=== PATIENT | male | born 1960 | race Caucasian/White ===

== ENCOUNTER 2016-05-18 14:39 | Inpatient (IN) | payer OTHER ==
[~2016-05-18] VITALS: Ht 180.3 cm; Wt 117.9 kg
[~2016-05-18 14:39] MED LIST: AMOXICILLIN500 M1 PO; AMOXICILLIN875 M1 PO; BACTRIM DS 8001 TAB PO; BACTRIM DS TAB1 EACH PO
--- NOTE | 2016-05-18 14:52 | NUR ---
PT TO ED C/O RIGHT FOOT CELLULITIS. PT WAS IN ED ON WEDNESDAY AND SENT HOME WITH PO ABX. PT SAW HIS PCP ON WEDNESDAY AND PREDNISONE AND AN ABX OINTMENT WAS ADDED. PT STATES IT IS NOT GETTING BETTER.
--- NOTE | 2016-05-18 15:12 | NUR ---
PT AMBULATORY TO [facility] AWAITING PROVIDER EVAL.
--- NOTE | 2016-05-18 15:12 | NUR ---
PT TO [facility] RM 11
--- NOTE | 2016-05-18 15:26 | NUR ---
ANTONIO CARRINGTON EVALUATING AT PRESENT
--- NOTE | 2016-05-18 15:31 | ED ANKLE/FOOT INJURY COMPLAINT ---
History of Present Illness General Chief Complaint: Foot or Ankle Injury Stated Complaint: R FOOT NOT GETTING BETTER Source: patient Exam Limitations: no limitations Vital Signs & Intake/Output Vital Signs & Intake/Output Vital Signs Date Time Temp Pulse Resp B/P Pulse O2 O2 Flow FiO2 Ox Delivery Rate 05/18 1451 97.1 87 20 130/78 97 Room Air Allergies Coded Allergies: NO KNOWN ALLERGIES (08/14/11) Reconcile Medications Amoxicillin 875 MG TABLET 1 TAB PO BID CELLULITIS Atorvastatin Calcium 40 MG TABLET 1 TAB PO DAILY CHOLESTEROL (Reported) Celecoxib 200 MG CAPSULE 1 CAP PO DAILY PSORIATIC ARTHRITIS (Reported) Cholecalciferol (Vitamin D3) (Vitamin D) 2,000 UNIT TABLET 1 TAB PO DAILY SUPPLEMENT (Reported) Cyanocobalamin (Vitamin B-12) (Cyanocobalamin Injection) 1,000 MCG/ML VIAL 1 ML IM Q2W SUPPLEMENT (Reported) Diflorasone Diacetate 0.05 % OINT...G. 1 CATHY TOP AD PRN PSORIASIS (Reported) Diflorasone Diacetate 0.05 % CREAM..G. 1 CATHY TOP AD PRN PSORIASIS (Reported) Escitalopram Oxalate 10 MG TABLET 1 TAB PO DAILY ANXIETY/DEPRESSION (Reported ) Ezetimibe (Zetia) 10 MG TABLET 1 TAB PO DAILY CHOLESTEROL (Reported) Levothyroxine Sodium (Synthroid) 50 MCG TABLET 1 TAB PO DAILY THYROID ( Reported) Methylprednisolone 4 MG TAB.DS.PK STEROID TAPER (Reported) Mupirocin 2 % OINT...G. 1 CATHY TOP TID RIGHT FOOT (Reported) apply to affected area(s) Sildenafil Citrate (Viagra) 50 MG TABLET 1 TAB PO AD PRN ED (Reported) 1 hour before sexual activity Sulfamethoxazole/Trimethoprim (Bactrim Ds Tablet) 800 MG-160 MG TABLET 1 TAB PO BID CELLULITIS Triage Note: PT TO ED C/O RIGHT FOOT CELLULITIS. PT WAS IN ED ON WEDNESDAY AND SENT HOME WITH PO ABX. PT SAW HIS PCP ON WEDNESDAY AND PREDNISONE AND AN ABX OINTMENT WAS ADDED. PT STATES IT IS NOT GETTING BETTER. Triage Nurses Notes Reviewed? yes Occurred: last week Duration: day(s): (6) Timing: recent history Severity: moderate Severity Numbers: 8 Pain/Injury Location: Right: Foot. Method of Injury: unknown No Modifying Factors: none HPI: Patient is a 56-year-old male presenting to the emergency department chief complaining of worsening redness pain and swelling to the right foot site being on 2 antibiotics. Patient was seen and evaluated here 5-6 days ago and started on 2 antibiotics, saw his primary care physician the following day who added on prednisone. He reports the symptoms have been worsening. Denies any fevers chills nausea vomiting chest pain or shortness of breath. He's been elevating the foot as much as he can. Pain worse with ambulation. Pain is moderate achy throbbing. (MATT OLMSTEAD) Past History Travel History Traveled to [place] past 21 day No Medical History Any Pertinent Medical History? see below for history Neurological: NONE EENT: NONE Cardiovascular: HIGH CHOLESTEROL Respiratory: NONE Gastrointestinal: NONE Hepatic: NONE Renal: NONE Musculoskeletal: psoariatic arthritis Psychiatric: NONE Endocrine: HYPOTHYROID Blood Disorders: NONE Cancer(s): NONE Surgical History Surgical History: non-contributory Psychosocial History What is your primary language [place] Tobacco Use: Quit >30 days ago ETOH Use: denies use Illicit Drug Use: denies illicit drug use Family History Hx Contributory? No (MATT OLMSTEAD) Review of Systems Review of Systems Constitutional: Reports: no symptoms. Comments Review of systems: See HPI, All other systems negative. Constitutional, no chills fever or weight loss HEENT: No visual changes no sore throat no congestion Cardiovascular: No chest pain ,palpitation Skin, no jaundice Respiratory: No dyspnea cough sputum or hemoptysis GI: No nausea no vomiting : No dysuria No hematuria Muscle skeletal: no back pain, no neck pain, Neurologic: No numbness no confusion Psych: No stress anxiety Immunology: No splenectomy or history of AIDS (MATT OLMSTEAD) Physical Exam Physical Exam General Appearance: well developed/nourished, no apparent distress, alert, comfortable Leg/Knee/Thigh Left: normal range of motion, normal inspection Comments: Well-developed well-nourished person in no acute distress HEENT: Pupils equally round and reactive to light and accommodation. Nose is atraumatic. Neck: Normal inspection Back: Nontender Cardiovascular: Regular rate and rhythms no murmurs rubs or gallops, normal JVP Respiratory: Chest nontender. No respiratory distress.breath sounds clear to auscultation bilaterally Extremity: Moderate edema noted to the right foot on the dorsal aspect. Near full range of motion, somewhat limited secondary to pain. No pain to palpation over the right medial and lateral malleolus. Capillary refills intact in right lower extremity. Pedal pulses are 2+ bilaterally. Neuro: Alert oriented x3, motor sensory normal Skin: Moderate erythema noted of the dorsum of the foot, spans an area approximately 8-10 cm, tender to palpation. Nonfluctuant. Psych: Mood and affect is normal, memory and judgment is normal. (CHARISSA ALVAREZ,MATT) Progress Differential Diagnosis: cellulitis, septic arthritis, fracture, sprain, contusion, septic arthritis, osteomyelitis Plan of Care: Orders Procedure Date/time Status Heart Healthy Diet 05/19 B Active Admit to inpatient 05/18 1755 Active Patient Data 05/18 1731 Active WESTERGREN SED RATE 05/18 1530 Complete C-REACTIVE PROTEIN 05/18 1530 Complete COMPREHENSIVE METABOLIC PANEL 05/18 1530 Complete CBC WITHOUT DIFFERENTIAL 05/18 1530 Complete Laboratory Tests 05/18/16 1536: Anion Gap 11, Estimated GFR > 60, BUN/Creatinine Ratio 18.2, Glucose 134 H, Calcium 9.6, Total Bilirubin 0.5, AST 35, ALT 89 H, Alkaline Phosphatase 111, C -Reactive Prot, Quant 1.9 H, Total Protein 7.4, Albumin 4.2, Globulin 3.2, Albumin/Globulin Ratio 1.3, CBC w Diff NO MAN DIFF REQ, RBC 4.92, MCV 88.4, MCH 30.1, RDW 13.1, MPV 7.3 L, Gran % 83.4 H, Lymphocytes % 9.9 L, Monocytes % 6.6, Eosinophils % 0.1, Basophils % 0 L, Absolute Granulocytes 12.4 H, Absolute Lymphocytes 1.5, Absolute Monocytes 1.0 H, Absolute Eosinophils 0, Absolute Basophils 0, PUBS MCHC 34.0, ESR Westergren 32 H Diagnostic Imaging: Viewed by Me: Radiology Read. Discussed w/RAD: Radiology Read. Radiology Impression: ATIENT: BERNIE PAT III PRESENT AGE: 56 PATIENT ACCOUNT NO: [id number] : 60 LOCATION: [facility] ORDERING PHYSICIAN: MATT ALVAREZ SERVICE DATE: 05/18/16-1529 EXAM TYPE: RAD - XRY-FOOT COMPLETE, R EXAMINATION: XR FOOT, RIGHT CLINICAL INFORMATION: Worsening cellulitis. Evaluate for osteomyelitis. COMPARISON: None. TECHNIQUE: AP, lateral, and oblique views of the right foot FINDINGS: Moderate soft tissue swelling is seen dorsal to the metatarsal bones. The hindfoot and midfoot are normal in appearance. There is focal sclerosis and lucencies in the distal phalanx of the first digit and the distal phalanx of the second digit. These findings appear chronic but require correlation with the site of clinical concern. IMPRESSION: Moderate soft tissue swelling. No well-defined radiographic changes of osteomyelitis. Focal sclerosis in the distal phalanges of the first and second digits are nonspecific. Correlate with prior infection or trauma. Correlate with site of clinical concern. Additional follow-up imaging with MRI could be obtained if there is a high index of clinical concern. DICTATED BY: MAR ROBERSON MD DATE/TIME DICTATED:05/18/161606 CONSTRUCTION RIGGER:KULDEEP DATE/TIME TRANSCRIBED:05/18/161606 CONFIDENTIAL, DO NOT COPY WITHOUT APPROPRIATE AUTHORIZATION. <Electronically signed in Other Vendor System> SIGNED BY: MAR ROBERSON MD 05/18/16 1612 Comments: Patient given IV Cleocin on arrival for worsening cellulitis. Patient will be admitted for failed outpatient treatment. Spoke with and would like patient to be a full admission for failed outpatient treatment. Patient also received IV Toradol for pain. (MATT OLMSTEAD) Departure Departure Time of Disposition: 1643 Disposition: STILL A PATIENT Condition: Stable Clinical Impression Primary Impression: Cellulitis Qualifiers: Site of cellulitis: unspecified site Qualified Code: L03.90 - Cellulitis, unspecified Secondary Impressions: Failure of outpatient treatment Leukocytosis Qualifiers: Leukocytosis type: unspecified Qualified Code: D72.829 - Elevated white blood cell count, unspecified Referrals: BERNIE CHEEK MD (PCP/Family) Referred to [facility] as new patient No Departure Forms: Customer Survey General Discharge Information Admission Note Spoke With: BERNIE CHEEK MD Documentation of Exam: Documentation of any treatments & extenuating circumstances including Concerns Regarding Discharge (functional status, medication knowledge or non-compliance, living conditions, etc.) that warrant an admission rather than observation: Patient requiring IV antibiotics, failed outpatient treatment, may need podiatry consultation. unsafe to discharge home at this time secondary to likely have worsening symptoms that could lead to sepsis. (CHARISSA ALVAREZ,MATT) PA/MANDARIN CHINESE TEACHER Co-Sign Statement Statement: ED Attending supervision documentation- [] I saw and evaluated the patient. I have also reviewed all the pertinent lab results and diagnostic results. I agree with the findings and the plan of care as documented in the PA's/MANDARIN CHINESE TEACHER's documentation. [X] I have reviewed the ED Record and agree with the PA's/MANDARIN CHINESE TEACHER's documentation. [] Additions or exceptions (if any) to the PAs/MANDARIN CHINESE TEACHER's note and plan are summarized below: [] (KAYODE TAMEZ DO
[2016-05-18 16:06] LABS: ABSOLUTE BASOPHIL COUNT 0 /CUMM (0.0-0.2); ABSOLUTE EOSINOPHIL COUNT 0 /CUMM (0.0-0.7); ABSOLUTE GRANULOCYTE CT 12.4 /CUMM (1.4-6.5); ABSOLUTE LYMPH COUNT 1.5 /CUMM (1.2-3.4); BASOPHIL % 0 % (0.0-2.0); EOSINOPHIL % 0.1 % (0-5); MEAN CORPUSCULAR HGB 30.1 PG (27.0-31.0); MEAN PLATELET VOLUME 7.3 FL (7.4-10.4); PLATELET COUNT 278 /CUMM (130-400); RBC DISTRIBUTION WIDTH 13.1 % (11.5-14.5); RED BLOOD CELL CT 4.92 /CUMM (4.70-6.10); WHITE BLOOD CELL COUNT 14.8 /CUMM (4.8-10.8)
[2016-05-18 16:08] LABS: GRANULOCYTE % 83.4 % (42.2-75.2); HEMATOCRIT 43.5 % (42-52); MEAN CORPUSCULAR VOLUME 88.4 FL (80.0-94.0)
--- NOTE | 2016-05-18 16:08 | NUR ---
PT MEDICATED WITH TORADOL AND CLEOCIN PER ORDERS
--- NOTE | 2016-05-18 16:12 | RADIOLOGY REPORT ---
EXAMINATION: XR FOOT, RIGHT CLINICAL INFORMATION: Worsening cellulitis. Evaluate for osteomyelitis. COMPARISON: None. TECHNIQUE: AP, lateral, and oblique views of the right foot FINDINGS: Moderate soft tissue swelling is seen dorsal to the metatarsal bones. The hindfoot and midfoot are normal in appearance. There is focal sclerosis and lucencies in the distal phalanx of the first digit and the distal phalanx of the second digit. These findings appear chronic but require correlation with the site of clinical concern. IMPRESSION: Moderate soft tissue swelling. No well-defined radiographic changes of osteomyelitis. Focal sclerosis in the distal phalanges of the first and second digits are nonspecific. Correlate with prior infection or trauma. Correlate with site of clinical concern. Additional follow-up imaging with MRI could be obtained if there is a high index of clinical concern.
[2016-05-18] MEDS ORDERED: SYNTHROID50 MCG PO (16:14)
[2016-05-18] MEDS ORDERED: ATORVASTATIN CA40 M1 PO (16:15)
[2016-05-18] MEDS ORDERED: ESCITALOPRAM OX10 MG PO (16:15)
[2016-05-18] MEDS ORDERED: ZETIA10 M1 PO (16:15)
[2016-05-18] MEDS ORDERED: VIAGRA50 MG PO (16:16)
[2016-05-18] MEDS ORDERED: CYANOCOBAL1000 MCG/2 IM (16:17)
[2016-05-18] MEDS ORDERED: CELECOXIB200 M1 PO (16:17)
[2016-05-18] MEDS ORDERED: VITAMIN D2000 UNI1 PO (16:18)
[2016-05-18] MEDS ORDERED: MUPIROCIN22 GM TOP (16:19)
[2016-05-18] MEDS ORDERED: DIFLORASONE DIA TOP ×2 (16:19→16:20)
[2016-05-18] MEDS ORDERED: METHYLPREDNISOLO4 M2 PO (16:19)
--- NOTE | 2016-05-18 16:29 | NUR ---
ANTONIO CARRINGTON AT BEDSIDE
--- NOTE | 2016-05-18 18:03 | NUR ---
SPOKE WITH JASON IN [facility]INING SERVICES, HEART HEALTHY TRAY ORDERED AT THIS TIME.
--- NOTE | 2016-05-18 18:30 | NUR ---
MEAL TRAY PROVIDED
--- NOTE | 2016-05-18 18:45 | NUR ---
HOUSE STAFF EVALUATING PATIENT AT PRESENT
--- NOTE | 2016-05-18 19:07 | History & Physical ---
CASS CASTILLO MD 05/18/161905: General Information and HPI MD Statement: I have seen and personally examined BERNIE PAT III and documented this H&P. The patient is a 56 year old M who presented with a patient stated chief complaint of [right foot pain and redness]. Source of Information: patient Exam Limitations: no limitations History of Present Illness: A very pleasant 56-year-old male with PMH of psoriasis, MRSA cellulitis, presented with worsening right foot erythema and pain. On Wednesday, he noted a blister over the dorsum of his right foot. On , it appeared more red. He presented to the ED and was discharged on bactrim and amoxicillin, which he has been taking religiously. On Wednesday, he followed up with his PCP and was given mupirocin ointment and methylprednisolone. Today (wednesday), the area has turned purple and he was concerned and again presented to the ED. Of note, he does have extensive psoriasis affecting both lower extremities and he had an underlying psoriatic lesion where the presumed cellulitis is currently on. The pain is about 3/10 at rest, and 10/10 when he bears weight on the right foot. He also reports tenderness over the dorsum of the foot. On ROS, he denies fever, chills, chest pain, diarrhea. Allergies/Medications Allergies: Coded Allergies: NO KNOWN ALLERGIES (08/14/11) Home Med list Amoxicillin 875 MG TABLET 1 TAB PO BID CELLULITIS Atorvastatin Calcium 40 MG TABLET 1 TAB PO DAILY CHOLESTEROL (Reported) Celecoxib 200 MG CAPSULE 1 CAP PO DAILY PSORIATIC ARTHRITIS (Reported) Cholecalciferol (Vitamin D3) (Vitamin D) 2,000 UNIT TABLET 1 TAB PO DAILY SUPPLEMENT (Reported) Cyanocobalamin (Vitamin B-12) (Cyanocobalamin Injection) 1,000 MCG/ML VIAL 1 ML IM Q2W SUPPLEMENT (Reported) Diflorasone Diacetate 0.05 % OINT...G. 1 CATHY TOP AD PRN PSORIASIS (Reported) Diflorasone Diacetate 0.05 % CREAM..G. 1 CATHY TOP AD PRN PSORIASIS (Reported) Escitalopram Oxalate 10 MG TABLET 1 TAB PO DAILY ANXIETY/DEPRESSION (Reported ) Ezetimibe (Zetia) 10 MG TABLET 1 TAB PO DAILY CHOLESTEROL (Reported) Folic Acid (Unknown Strength) CAPSULE (Unknown Dose) PO DAILY SUPPLEMENT ( Reported) Levothyroxine Sodium (Synthroid) 50 MCG TABLET 1 TAB PO DAILY THYROID ( Reported) Methylprednisolone 4 MG TAB.DS.PK STEROID TAPER (Reported) Mupirocin 2 % OINT...G. 1 CATHY TOP TID RIGHT FOOT (Reported) apply to affected area(s) Sildenafil Citrate (Viagra) 50 MG TABLET 1 TAB PO AD PRN ED (Reported) 1 hour before sexual activity Sulfamethoxazole/Trimethoprim (Bactrim Ds Tablet) 800 MG-160 MG TABLET 1 TAB PO BID CELLULITIS Past History Travel History Traveled to [place] past 21 day No Medical History Neurological: NONE EENT: NONE Cardiovascular: HIGH CHOLESTEROL Respiratory: NONE Gastrointestinal: NONE Hepatic: NONE Renal: NONE Musculoskeletal: psoariatic arthritis Psychiatric: NONE Endocrine: HYPOTHYROID Blood Disorders: NONE Cancer(s): NONE Surgical History Surgical History: non-contributory Past Family/Social History Psychosocial History ETOH Use: denies use Illicit Drug Use: denies illicit drug use Review of Systems Review of Systems Constitutional: Denies: chills, fever. EENTM: Denies: visual changes. Cardiovascular: Denies: chest pain, palpitations. Respiratory: Denies: cough, short of breath. GI: Denies: abdominal pain, bloating, constipation, diarrhea. Exam & Diagnostic Data Last 24 Hrs of Vital Signs/I&O Vital Signs Date Time Temp Pulse Resp B/P Pulse O2 O2 Flow FiO2 Ox Delivery Rate 05/18 1935 95.8 82 18 125/73 95 Room Air 05/18 1451 97.1 87 20 130/78 97 Room Air Intake & Output 05/18 1600 05/18 0800 05/18 0000 Intake Total Output Total Balance Patient 120.202 kg Weight Physical Exam General Appearance Alert, Oriented X3, Cooperative, No Acute Distress Skin psoriatic lesions over both lower extremities, about 8 mm purple lesion with surrounding 3 cm diameter erythema over the dorsum of the right foot. area tneder to touch. area not marked because we cannot find a surgical marker. HEENT Atraumatic, PERRLA Cardiovascular Regular Rate, Normal S1, Normal S2, No Murmurs, Gallops, Rubs Lungs Clear to Auscultation, Normal Air Movement Abdomen Normal Bowel Sounds, Soft, No Tenderness Neurological Normal Speech Body Front and Back (Adult) 1) 8 mm purple lesion with surrounding 3cm diameter erythema Last 24 Hrs of Labs/Sidney: Laboratory Tests 05/18/16 1536: Anion Gap 11, Estimated GFR > 60, BUN/Creatinine Ratio 18.2, Glucose 134 H, Calcium 9.6, Total Bilirubin 0.5, AST 35, ALT 89 H, Alkaline Phosphatase 111, C -Reactive Prot, Quant 1.9 H, Total Protein 7.4, Albumin 4.2, Globulin 3.2, Albumin/Globulin Ratio 1.3, CBC w Diff NO MAN DIFF REQ, RBC 4.92, MCV 88.4, MCH 30.1, RDW 13.1, MPV 7.3 L, Gran % 83.4 H, Lymphocytes % 9.9 L, Monocytes % 6.6, Eosinophils % 0.1, Basophils % 0 L, Absolute Granulocytes 12.4 H, Absolute Lymphocytes 1.5, Absolute Monocytes 1.0 H, Absolute Eosinophils 0, Absolute Basophils 0, PUBS MCHC 34.0, ESR Westergren 32 H Diagnostic Data Other Results Foot xray: Moderate soft tissue swelling. No well-defined radiographic changes of osteomyelitis. Focal sclerosis in the distal phalanges of the first and second digits are nonspecific. Correlate with prior infection or trauma. Correlate with site of clinical concern. Additional follow-up imaging with MRI could be obtained if there is a high index of clinical concern. Assessment/Plan Assessment: 56-year-old male with PMH of psoriasis, MRSA cellulitis, presented with worsening right foot erythema and pain, not improving on OP treatment with amoxicillin, bactrim, mupirocin, and methylprednisolone. # Cellulitis, presumably MRSA - WBC 14.8 - ESR 32 - Right foot xray negative for osteomyelitis - Given 1 time clindamycin in ED * Pain control with morphine * IV vancomycin * Consider MRI to r/o osteomyelitis # Psoriasis * Continue celecoxib and ointments # HLD * Continue statin # Hypothyroidism * Continue home dose levothyroxine Diet: regular DVT ppx: mech and pharm FULL CODE As Ranked By This Provider Problem List: 1. Cellulitis Qualifiers Site of cellulitis: unspecified site Qualified Code: L03.90 - Cellulitis, unspecified 2. Failure of outpatient treatment 3. Leukocytosis Qualifiers Leukocytosis type: unspecified Qualified Code: D72.829 - Elevated white blood cell count, unspecified Core Measures/Miscellaneous Acute Coronary Syndrome ACS Diagnosis: No Cerebrovascular Accident CVA/TIA Diagnosis: No Congestive Heart Failure CHF Diagnosis: No Venous Thromboembolism VTE Risk Factors: Acute medical illness, Age > 40 VTE Prophylaxis Ordered Inpt: Mech & Pharm No Mech VTE prophylaxis d/t: No contraindications No VTE Pharm Prophylaxis d/t: No contraindications VTE Diagnosis: No VTE Type: NONE VTE Confirmed by (Test): NONE Severe Sepsis Severe Sepsis Present: No Septic Shock Septic Shock Present: No Miscellaneous Documentation Attending Case Discussed With: BERNIE CHEEK MD Primary Care Physician: BERNIE CHEEK MD Patient sees these Specialists N/A Level of Patient Care: General Medicine MONA WANG 05/18/167: Resident Review Statement Resident Statement: examined this patient, discussed with planner internship, agreed with planner internship, discussed with family, reviewed EMR data (avail), amended to note Other Findings: 56-year-old gentleman with past medical history of psoriasis, MRSA cellulitis, hyperlipidemia, hypothyroidism, depression came to the hospital with failed outpatient therapy for cellulitis. Patient reported he was here and and he was discharged with amoxicillin and Bactrim for his right foot cellulitis however the cellulitis got worse and top of his foot became purple and more painful. He denies any fevers or chills or nausea or vomiting or chest pain, trauma. However he does have multiple psoriatic lesions. Vital signs on admission were stable, no fever General appearance alert and oriented 3, not in distress HEENT Atraumatic, PERRLA, EOMI Neck Supple, No JVD, No thryomegaly Cardiovascular Regular Rate, Normal S1, Normal S2 Lungs Clear to Auscultation, Normal Air Movement Extremities multiple psoriatic lesions in hands and Legs,purple 5x5 cm tender in dorsum of the foot, no fluctutions FOOT X RAY IMPRESSION: Moderate soft tissue swelling. No well-defined radiographic changes of osteomyelitis. Focal sclerosis in the distal phalanges of the first and second digits are nonspecific. Correlate with prior infection or trauma. Correlate with site of clinical concern. Assessment -Possible MRSA cellulitis -Psoriasis -Hypothyroidism plan -Patient got IV clindamycin once, will put the patient on IV vancomycin -Check for fevers, blood cultures -Continue celexbocib , IV morphine for pain -Continue SSRI, levothyroxine, Zetia -Continue steroid cream for psoriasis -DVT prophylaxis Alps and heparin sub Q, heart healthy diet, full code
[2016-05-18] MEDS ORDERED: FOLIC ACID0.8 M1 PO (20:43)
--- NOTE | 2016-05-18 21:33 | NUR ---
PT'S ASSIGNMENT 206
--- NOTE | 2016-05-18 21:42 | NUR ---
REPORT TO TRISHA HERFLEXOGRAPHIC PRINTING MACHINIST CALLED.
--- NOTE | 2016-05-18 23:35 | NUR ---
ADMISSION NOTE: PT ARRIVED TO FLOOR VIA WC, A/OX3, ROOM AIR, IV SITE INTACT, PAIN /10 TO RT FOOT, REDNESS AND +1 EDEMA NOTED TO RT FOOT, PSORIASIS NOTED TO BLE, WELCOME FOLDER GIVEN, ORIENTED TO ROOM, RESTING IN LOW, LOCKED BED.
[2016-05-18 23:40] VITALS: BP 114/59
--- NOTE | 2016-05-19 07:18 | Admission Certification ---
Admission Certification Certification Statement - As attending physician, I certify that at the time of - admission, based on clinical presentation, severity of - symptoms, need for further diagnostic testing and - therapeutic interventions, and risk of adverse outcomes - without in-hospital treatment, in my clinical assessment, - this patient requires an acute hospital stay for a minimum - of two nights or longer. I have also considered psychsocial - factors such as support system, advanced age, financial - issues, cognitive issues, and failed out-patient treatments, - past re-admission history, safety of patient, and lack of - compliance as applicable. Specific rationale supporting this admission is: Patient admitted to the hospital for IV antibiotics for her recurrent cellulitis not responding to oral antibiotics for about a week.
--- NOTE | 2016-05-19 07:24 | PN- Att Addend ---
Attending Addendum Attending Brief Note Intake & Output 05/19 0800 05/19 0000 05/18 1600 Intake Total 100 Output Total Balance 100 Intake, IV 100 Patient 260 lb 265 lb Weight Current Medications Sig/Fariba Start time Last Medication Dose Route Stop Time Status Admin Acetaminophen 650 MG Q4P PRN 05/18 2215 AC PO Atorvastatin Calcium 40 MG DAILY 05/19 1000 AC PO Celecoxib 200 MG DAILY 05/19 1000 AC PO Cholecalciferol 1,000 IU DAILY 05/19 1000 AC PO Clindamycin 600 MG ONCE ONE 05/18 1530 DC 05/18 Dextrose/Water 50 ML IV 05/18 1559 1608 Enoxaparin Sodium 40 MG DAILY 05/19 1000 CAN SC Escitalopram Oxalate 10 MG DAILY 05/19 1000 AC PO Ezetimibe 10 MG DAILY 05/19 1000 AC PO Fluocinonide 1 CATHY BID 05/18 220 AC 05/18 EXT 2256 Heparin Sodium 5,000 UNIT Q8 05/19 0600 AC 05/19 (Porcine) SC 0707 Ketorolac 0 .STK-MED ONE 05/18 1602 DC Tromethamine .ROUTE Ketorolac 30 MG ONCE ONE 05/18 1545 DC 05/18 Tromethamine IV 05/18 1546 1608 Levothyroxine Sodium 0.05 MG DAILY AC 05/19 0700 AC 05/19 PO 0707 Morphine Sulfate 2 MG Q4P PRN 05/18 2215 AC 05/19 IV 0707 Vancomycin HCl 1,500 MG Q12 05/19 1000 AC Sodium Chloride 250 ML IV Vancomycin HCl 1,000 MG ONCE ONE 05/18 2215 DC 05/19 Sodium Chloride 250 ML IV 05/18 2314 0047 Laboratory Tests 05/18 1536 Chemistry Sodium (137 - 145 mmol/L) 137 Potassium (3.5 - 5.1 mmol/L) 4.2 Chloride (98 - 107 mmol/L) 100 Carbon Dioxide (22 - 30 mmol/L) 26 Anion Gap (5 - 16) 11 BUN (9 - 20 mg/dL) 20 Creatinine (0.7 - 1.2 mg/dL) 1.1 Estimated GFR (>60 ml/min) > 60 BUN/Creatinine Ratio (7 - 25 %) 18.2 Glucose (65 - 99 mg/dL) 134 H Calcium (8.4 - 10.2 mg/dL) 9.6 Total Bilirubin (0.2 - 1.3 mg/dL) 0.5 AST (17 - 59 U/L) 35 ALT (21 - 72 U/L) 89 H Alkaline Phosphatase (< 127 U/L) 111 C-Reactive Prot, Quant (<1.0 mg/dL) 1.9 H Total Protein (6.3 - 8.2 g/dL) 7.4 Albumin (3.5 - 5.0 g/dL) 4.2 Globulin (1.9 - 4.2 gm/dL) 3.2 Albumin/Globulin Ratio (1.1 - 2.2 %) 1.3 Hematology CBC w Diff NO MAN DIFF REQ WBC (4.8 - 10.8 /CUMM) 14.8 H RBC (4.70 - 6.10 /CUMM) 4.92 Hgb (14.0 - 18.0 G/DL) 14.8 Hct (42 - 52 %) 43.5 MCV (80.0 - 94.0 FL) 88.4 MCH (27.0 - 31.0 PG) 30.1 RDW (11.5 - 14.5 %) 13.1 Plt Count (130 - 400 /CUMM) 278 MPV (7.4 - 10.4 FL) 7.3 L Gran % (42.2 - 75.2 %) 83.4 H Lymphocytes % (20.5 - 51.1 %) 9.9 L Monocytes % (1.7 - 9.3 %) 6.6 Eosinophils % (0 - 5 %) 0.1 Basophils % (0.0 - 2.0 %) 0 L Absolute Granulocytes (1.4 - 6.5 /CUMM) 12.4 H Absolute Lymphocytes (1.2 - 3.4 /CUMM) 1.5 Absolute Monocytes (0.10 - 0.60 /CUMM) 1.0 H Absolute Eosinophils (0.0 - 0.7 /CUMM) 0 Absolute Basophils (0.0 - 0.2 /CUMM) 0 PUBS MCHC (33.0 - 37.0 G/DL) 34.0 ESR Westergren (0 - 10 MM) 32 H Microbiology Date/Time Procedure - Status Source Growth 05/19 Blood Culture - RECD BLOOD 05/19 Blood Culture - RECD BLOOD Vital Signs Date Time Temp Pulse Resp B/P Pulse O2 O2 Flow FiO2 Ox Delivery Rate 05/18 2340 97.3 68 20 114/59 96 Room Air 05/18 2150 96.0 70 16 112/68 98 Room Air 05/18 1935 95.8 82 18 125/73 95 Room Air 05/18 1451 97.1 87 20 130/78 97 Room Air Intake & Output 05/19 0800 05/19 0000 05/18 1600 Intake Total 100 Output Total Balance 100 Intake, IV 100 Patient 260 lb 265 lb Weight Attending admitting note. This is a gentleman with a history of for small cell cellulitis in the past present to the emergency room with worsening of cellulitis of his the right foot. So I'm in the office was treated with the doxycycline not responding to oral antibiotics. Pain and swelling is "worse has difficulty ambulating. On examination of redness and swelling on the dorsum of the right foot with the in duration extending all over the dorsum of the foot actually proximally. As well Assessment Cellulitis crushable MRSA sepsis Obtain blood cultures *The patient IV vancomycin. 4. An infectious disease consult
--- NOTE | 2016-05-19 07:29 | PN- Housestaff ---
Subjective Follow-up For: MRSA cellulities psoriasis Subjective: I have seen and examined the patient. he still has pain in his right foot.no major change in the appreance of the cellulties Review of Systems Constitutional: Reports: see HPI. Objective Last 24 Hrs of Vital Signs/I&O Vital Signs Date Time Temp Pulse Resp B/P Pulse O2 O2 Flow FiO2 Ox Delivery Rate 05/19 0914 98.2 90 20 142/90 94 Room Air 05/18 2340 97.3 68 20 114/59 96 Room Air 05/18 2150 96.0 70 16 112/68 98 Room Air 05/18 1935 95.8 82 18 125/73 95 Room Air 05/18 1451 97.1 87 20 130/78 97 Room Air Intake & Output 05/19 1600 05/19 0800 05/19 0000 Intake Total 250 100 Output Total Balance 250 100 Intake, IV 250 100 Patient 260 lb Weight Physical Exam General Appearance: Alert, Oriented X3, Cooperative, No Acute Distress Current Medications: Current Medications Sig/Fariba Start time Last Medication Dose Route Stop Time Status Admin Acetaminophen 650 MG Q8 05/19 1400 AC PO 05/21 0000 Acetaminophen 650 MG Q4P PRN 05/18 2215 DC PO Atorvastatin Calcium 40 MG DAILY 05/19 1000 AC 05/19 PO 1006 Celecoxib 200 MG DAILY 05/19 1000 CAN PO Cholecalciferol 1,000 IU DAILY 05/19 1000 AC 05/19 PO 1006 Clindamycin 600 MG ONCE ONE 05/18 1530 DC 05/18 Dextrose/Water 50 ML IV 05/18 1559 1608 Enoxaparin Sodium 40 MG DAILY 05/19 1000 CAN SC Escitalopram Oxalate 10 MG DAILY 05/19 1000 AC 05/19 PO 1006 Ezetimibe 10 MG DAILY 05/19 1000 AC 05/19 PO 1006 Fluocinonide 1 CATHY BID 05/18 2203 AC 05/19 EXT 1007 Heparin Sodium 5,000 UNIT Q8 05/19 0600 AC 05/19 (Porcine) SC 0707 Ibuprofen 400 MG Q6P PRN 05/19 0830 AC 05/19 PO 1013 Ketorolac 0 .STK-MED ONE 05/18 1602 DC Tromethamine .ROUTE Ketorolac 30 MG ONCE ONE 05/18 1545 DC 05/18 Tromethamine IV 05/18 1546 1608 Levothyroxine Sodium 0.05 MG DAILY AC 05/19 0700 AC 05/19 PO 0707 Morphine Sulfate 2 MG Q4P PRN 05/18 2215 AC 05/19 IV 0707 Vancomycin HCl 1,500 MG Q12 05/19 1000 AC 05/19 Sodium Chloride 250 ML IV 1007 Vancomycin HCl 1,000 MG ONCE ONE 05/18 221 DC 05/19 Sodium Chloride 250 ML IV 05/18 2314 0047 Assessment/Plan Assessment: 56-year-old gentleman with past medical history of psoriasis, MRSA cellulitis, hyperlipidemia, hypothyroidism, depression came to the hospital with failed outpatient therapy for cellulitis. Patient reported he was here and and he was discharged with amoxicillin and Bactrim for his right foot cellulitis however the cellulitis got worse and top of his foot became purple and more painful. He denies any fevers or chills or nausea or vomiting or chest pain, trauma. However he does have multiple psoriatic lesions. Vital signs on admission were stable, no fever General appearance alert and oriented 3, not in distress HEENT Atraumatic, PERRLA, EOMI Neck Supple, No JVD, No thryomegaly Cardiovascular Regular Rate, Normal S1, Normal S2 Lungs Clear to Auscultation, Normal Air Movement Extremities multiple psoriatic lesions in hands and Legs,purple 5x5 cm tender in dorsum of the foot, no fluctutions FOOT X RAY IMPRESSION: Moderate soft tissue swelling. No well-defined radiographic changes of osteomyelitis. Focal sclerosis in the distal phalanges of the first and second digits are nonspecific. Correlate with prior infection or trauma. Correlate with site of clinical concern. Assessment -Possible MRSA cellulitis -Psoriasis -Hypothyroidism plan -continue IV vancomycin BID,WBC is trending down -no fevers, blood cultures pending -d/c celexbocib, acetaminophen 625 Q8,motrin prn for moderate pain , IV morphine for pain -ID consult pending -Continue SSRI, levothyroxine, Zetia -Continue steroid cream for psoriasis -DVT prophylaxis Alps and heparin sub Q, heart healthy diet, full code Problem List: 1. Cellulitis Pain Ratin Pain Location: right foot Pain Goal: Pain 4 or less Pain Plan: acetaminophen Q8, motrin PRN, morphine for severe pain Tomorrow's Labs & Rationales: cbc bep
[2016-05-19 09:14] VITALS: BP 142/90
[2016-05-19 09:24] LABS: ABSOLUTE BASOPHIL COUNT 0.1 /CUMM (0.0-0.2); ABSOLUTE EOSINOPHIL COUNT 0.1 /CUMM (0.0-0.7); ABSOLUTE GRANULOCYTE CT 8.4 /CUMM (1.4-6.5); ABSOLUTE LYMPH COUNT 2.6 /CUMM (1.2-3.4); ABSOLUTE MONOCYTE COUNT 1.5 /CUMM (0.10-0.60); BASOPHIL % 0.4 % (0.0-2.0); EOSINOPHIL % 0.6 % (0-5); GRANULOCYTE % 66.8 % (42.2-75.2); HEMATOCRIT 43.1 % (42-52); MEAN CORPUSCULAR HGB 29.8 PG (27.0-31.0); MEAN CORPUSCULAR HGB CONC 33.7 G/DL (33.0-37.0); MEAN CORPUSCULAR VOLUME 88.6 FL (80.0-94.0); MEAN PLATELET VOLUME 7.1 FL (7.4-10.4); PLATELET COUNT 255 /CUMM (130-400); RBC DISTRIBUTION WIDTH 12.9 % (11.5-14.5); RED BLOOD CELL CT 4.86 /CUMM (4.70-6.10); WHITE BLOOD CELL COUNT 12.6 /CUMM (4.8-10.8)
[2016-05-19 16:07] VITALS: BP 142/86
--- NOTE | 2016-05-19 16:51 | Cons- Infect Disease ---
General Information and HPI Consulting Request Date of Consult: 05/19/16 Requested By: BERNIE CHEEK MD Reason for Consult: Cellulitis right foot Source of Information: patient, old records History of Present Illness: This is a 56-year-old man with a history of psoriasis, treated 6 months prior to admission for a right knee purulent cellulitis secondary to MRSA with an I&D and Amoxicillin and Bactrim with resolution, with a right postauricular abscess 1 week prior to admission, which resolved on its own, seen in the emergency room 4 days prior to admission with a one-day history of pain, erythema and swelling over the dorsum of the right foot, initially presenting as a blister on the previous day, found to be afebrile, and discharged on Amoxicillin and Bactrim, begun on Mupirocin ointment and prednisone by his primary care physician on the next day, admitted on October 16 after returning to the emergency room with increasing pain, swelling and erythema over the dorsum of the foot, with no associated fevers, chills or other symptoms. On admission he was afebrile. Laboratory data revealed a white blood cell count of 15,000, BUN/creatinine 20 and 1.1, AST/ALT 35 and 89. X-ray of the right foot revealed moderate soft tissue swelling with no evidence of osteomyelitis. He was given a dose of Clindamycin and was then placed on Vancomycin. He was also given Toradol, with initial relief of his pain. He has remained afebrile overnight. He continues to complain of pain today, which did not completely respond to morphine and at present he notes mild nausea. Allergies/Medications Allergies: Coded Allergies: NO KNOWN ALLERGIES (08/14/11) Home Med List: Amoxicillin 875 MG TABLET 1 TAB PO BID CELLULITIS Atorvastatin Calcium 40 MG TABLET 1 TAB PO DAILY CHOLESTEROL (Reported) Celecoxib 200 MG CAPSULE 1 CAP PO DAILY PSORIATIC ARTHRITIS (Reported) Cholecalciferol (Vitamin D3) (Vitamin D) 2,000 UNIT TABLET 1 TAB PO DAILY SUPPLEMENT (Reported) Cyanocobalamin (Vitamin B-12) (Cyanocobalamin Injection) 1,000 MCG/ML VIAL 1 ML IM Q2W SUPPLEMENT (Reported) Diflorasone Diacetate 0.05 % OINT...G. 1 CATHY TOP AD PRN PSORIASIS (Reported) Diflorasone Diacetate 0.05 % CREAM..G. 1 CATHY TOP AD PRN PSORIASIS (Reported) Escitalopram Oxalate 10 MG TABLET 1 TAB PO DAILY ANXIETY/DEPRESSION (Reported ) Ezetimibe (Zetia) 10 MG TABLET 1 TAB PO DAILY CHOLESTEROL (Reported) Folic Acid (Unknown Strength) CAPSULE (Unknown Dose) PO DAILY SUPPLEMENT ( Reported) Levothyroxine Sodium (Synthroid) 50 MCG TABLET 1 TAB PO DAILY THYROID ( Reported) Methylprednisolone 4 MG TAB.DS.PK STEROID TAPER (Reported) Mupirocin 2 % OINT...G. 1 CATHY TOP TID RIGHT FOOT (Reported) apply to affected area(s) Sildenafil Citrate (Viagra) 50 MG TABLET 1 TAB PO AD PRN ED (Reported) 1 hour before sexual activity Sulfamethoxazole/Trimethoprim (Bactrim Ds Tablet) 800 MG-160 MG TABLET 1 TAB PO BID CELLULITIS Past History Travel History Traveled to [place] past 21 day No Medical History Blood Transfusion Hx: No Neurological: NONE EENT: NONE Cardiovascular: HIGH CHOLESTEROL Respiratory: NONE Gastrointestinal: NONE Hepatic: NONE Renal: NONE Psychiatric: depression Endocrine: HYPOTHYROID Blood Disorders: NONE Cancer(s): NONE Other Medical Hx: Psoriasis History of MRSA: Yes History of VRE: No History of CDIFF: No Isolation History: Contact Surgical History Surgical History: non-contributory Psychosocial History Where Do You Live? Home Smoking Status: Former Smoker ETOH Use: denies use Illicit Drug Use: denies illicit drug use Review of Systems Review of Systems All Other Systems: Reviewed and Negative Exam & Diagnostic Data Last 24 Hrs of Vital Signs/I&O Vital Signs Date Time Temp Pulse Resp B/P Pulse O2 O2 Flow FiO2 Ox Delivery Rate 05/19 1607 97.4 81 20 142/86 95 05/19 0914 98.2 90 20 142/90 94 Room Air 05/18 2340 97.3 68 20 114/59 96 Room Air 05/18 2150 96.0 70 16 112/68 98 Room Air 05/18 1935 95.8 82 18 125/73 95 Room Air Intake & Output 05/19 1600 05/19 0800 05/19 0000 Intake Total 1020 250 100 Output Total Balance 1020 250 100 Intake, IV 300 250 100 Intake, Oral 720 Number 1 Bowel Movements Patient 260 lb Weight Physical Exam Other Physical Findings: He is awake and alert in no acute distress. He is afebrile. Skin reveals diffuse erythema over his face, trunk and back; patches of psoriatic lesions on his lower extremities. HEENT exam is negative. Neck is supple with no adenopathy. Lungs are clear. Heart regular rhythm with no murmur. Abdomen is soft, nontender with positive bowel sounds. Back no CVA tenderness. Extremities localized area of erythema and induration, quite tender to palpation , with an eschar over the center of this area, with no drainage expressible; no cyanosis, clubbing or edema of the lower extremities; pulses 2+ and equal. Neuro is without focality. Last 24 Hours of Lab Results: Laboratory Tests 05/19 0645 Chemistry Sodium (137 - 145 mmol/L) 142 Potassium (3.5 - 5.1 mmol/L) 4.2 Chloride (98 - 107 mmol/L) 101 Carbon Dioxide (22 - 30 mmol/L) 26 Anion Gap (5 - 16) 14 BUN (9 - 20 mg/dL) 17 Creatinine (0.7 - 1.2 mg/dL) 0.9 Estimated GFR (>60 ml/min) > 60 BUN/Creatinine Ratio (7 - 25 %) 18.9 Hematology CBC w Diff NO MAN DIFF REQ WBC (4.8 - 10.8 /CUMM) 12.6 H RBC (4.70 - 6.10 /CUMM) 4.86 Hgb (14.0 - 18.0 G/DL) 14.5 Hct (42 - 52 %) 43.1 MCV (80.0 - 94.0 FL) 88.6 MCH (27.0 - 31.0 PG) 29.8 RDW (11.5 - 14.5 %) 12.9 Plt Count (130 - 400 /CUMM) 255 MPV (7.4 - 10.4 FL) 7.1 L Gran % (42.2 - 75.2 %) 66.8 Lymphocytes % (20.5 - 51.1 %) 20.7 Monocytes % (1.7 - 9.3 %) 11.5 H Eosinophils % (0 - 5 %) 0.6 Basophils % (0.0 - 2.0 %) 0.4 Absolute Granulocytes (1.4 - 6.5 /CUMM) 8.4 H Absolute Lymphocytes (1.2 - 3.4 /CUMM) 2.6 Absolute Monocytes (0.10 - 0.60 /CUMM) 1.5 H Absolute Eosinophils (0.0 - 0.7 /CUMM) 0.1 Absolute Basophils (0.0 - 0.2 /CUMM) 0.1 PUBS MCHC (33.0 - 37.0 G/DL) 33.7 ESR Westergren (0 - 10 MM) 22 H Last 24 Hours of [place] Results: Blood cultures May 19 pending Diagnostic Data Recent Imaging Findings: X-ray of the right foot May 18 reveals moderate soft tissue swelling with no evidence of osteomyelitis Assessment/Plan Assessment/Plan Impression: This is a 56-year-old man with psoriasis and a history of a purulent cellulitis of the right knee 6 months prior to admission admitted on May 18 with increasing pain, erythema and swelling over the dorsum of the right foot despite empiric treatment with Amoxicillin and Bactrim, prescribed on a previous ER visit 4 days prior to admission, found to be afebrile with a leukocytosis. He appears to have a purulent cellulitis of the right foot and suspect it may require drainage for resolution in addition to the antibiotics. This may well be secondary to MRSA, but aspiration or I&D of this lesion will also provide a culture to confirm this clinical suspicion. The etiology of this is unclear. He denies any history of trauma, though he does report a blister at the onset of this infection. Suggestion: 1. Surgical evaluation for an I&D of the right foot lesion 2. Continue Vancomycin 1.5 grams IV every 12 hours pending above Consult Acknowledgment - Thank you for your consult request.
[2016-05-20 00:38] VITALS: BP 104/70
--- NOTE | 2016-05-20 07:29 | PN- Att Addend ---
Attending Addendum Attending Brief Note Laboratory Tests 05/20 06 Chemistry Sodium Pending Potassium Pending Chloride Pending Carbon Dioxide Pending Anion Gap Pending BUN Pending Creatinine Pending BUN/Creatinine Ratio Pending Hematology CBC w Diff Pending WBC Pending RBC Pending Hgb Pending Hct Pending MCV Pending MCH Pending RDW Pending Plt Count Pending MPV Pending PUBS MCHC Pending Vital Signs Date Time Temp Pulse Resp B/P Pulse O2 O2 Flow FiO2 Ox Delivery Rate 05/20 0038 97.5 68 20 104/70 92 Room Air 05/19 1607 97.4 81 20 142/86 95 05/19 0914 98.2 90 20 142/90 94 Room Air Intake & Output 05/20 0800 05/20 0000 05/19 1600 Intake Total 064 238 6320 Output Total 500 Balance 062 791 5949 Intake, IV 250 300 Intake, Oral 600 300 720 Number 1 Bowel Movements Output, Urine 500 Attending note. Patient is afebrile Still has got marked swelling and duration on the dorsum of his right foot, currently on IV vancomycin 1.5 g IV History and duration as well as possible fluctuation on the dorsum of the right foot. Past surgical consult for I&D. Continue IV vancomycin
[2016-05-20 07:57] LABS: ABSOLUTE BASOPHIL COUNT 0 /CUMM (0.0-0.2); ABSOLUTE EOSINOPHIL COUNT 0.1 /CUMM (0.0-0.7); ABSOLUTE GRANULOCYTE CT 6.3 /CUMM (1.4-6.5); ABSOLUTE LYMPH COUNT 2.7 /CUMM (1.2-3.4); ABSOLUTE MONOCYTE COUNT 1.1 /CUMM (0.10-0.60); BASOPHIL % 0.5 % (0.0-2.0); EOSINOPHIL % 0.9 % (0-5); GRANULOCYTE % 61.8 % (42.2-75.2); HEMATOCRIT 41.4 % (42-52); MEAN CORPUSCULAR HGB 29.6 PG (27.0-31.0); MEAN CORPUSCULAR HGB CONC 33.5 G/DL (33.0-37.0); MEAN CORPUSCULAR VOLUME 88.5 FL (80.0-94.0); PLATELET COUNT 242 /CUMM (130-400); RBC DISTRIBUTION WIDTH 12.9 % (11.5-14.5); RED BLOOD CELL CT 4.68 /CUMM (4.70-6.10); WHITE BLOOD CELL COUNT 10.3 /CUMM (4.8-10.8)
[2016-05-20 08:32] VITALS: BP 108/60; BP 148/84
--- NOTE | 2016-05-20 08:34 | ULTRASOUND REPORT ---
EXAMINATION: US SUPERFICIAL IMAGING, EXTREMITY RIGHT CLINICAL INFORMATION: Redness or lump on dorsal aspect of right foot. COMPARISON: None. TECHNIQUE: Ultrasound of dorsal aspect of the right foot was performed on color flow Doppler imaging. FINDINGS: There is a fluid collection with complex fluid within it measuring 2.4 x 0.6 x 2.7 cm. No other abnormality is seen. IMPRESSION: Fluid collection dorsum of right foot. This certainly would be consistent with an abscess.
--- NOTE | 2016-05-20 11:43 | PN- Housestaff ---
Subjective Follow-up For: MRSA cellulities psoriasis Complaints: pain and swelling of his right foot Subjective: patient was visited and examined. He is complaining of pain, swelling and tenderness of his right foot. On vancomycin #3 day. VS: remained stable and afebrile. Review of Systems Constitutional: Denies: chills, diaphoresis, fever, malaise, weakness, unexplained weight loss. EENTM: Denies: blurred vision, double vision, visual changes, eye pain, eye drainage, eye tearing, icterus, ear discharge, ear pain, ear redness, hearing changes, nasal congestion, epistaxis, nasal pain, throat pain, throat swelling, mouth pain, tooth pain. Cardiovascular: Denies: chest pain, edema, orthopena, palpitations, peripheral edema, syncope. Respiratory: Denies: cough, hemoptysis, orthopnea, short of breath, sputum production, stridor, wheezing. Skin: Reports: see HPI, dryness, erythema, lesions. Neurological/Psychological: Denies: anxiety, ataxia, cognitive dysfunction, confusion, depressed, dementia, emotional problems, headache, numbness, paresthesia, pre-existing deficit, petit mal seizures, tingling, tremors, tonic-clonic seizures, unable to move lower ext , unable to move upper ext, weakness, other. Hematologic/Endocrine: Denies: bruising, bleeding, polyuria, polydipsia, other. Immunologic/Allergic: Denies: splenectomy, HIV/AIDS, lymphadenopathy, other. Objective Last 24 Hrs of Vital Signs/I&O Vital Signs Date Time Temp Pulse Resp B/P Pulse O2 O2 Flow FiO2 Ox Delivery Rate 05/20 0832 97.4 78 20 108/60 94 Room Air 05/20 0038 97.5 68 20 104/70 92 Room Air 05/19 1607 97.4 81 20 142/86 95 Intake & Output 05/20 1600 05/20 0800 05/20 0000 Intake Total 850 300 Output Total 500 Balance 350 300 Intake, IV 250 Intake, Oral 600 300 Output, Urine 500 Physical Exam General Appearance: Alert, Oriented X3, Cooperative, No Acute Distress Skin: No Rashes HEENT: Atraumatic Extremities: pain, tenderness, and swelling of the right foot Vascular: Normal Pulses, Pulses Symmetrical Current Medications: Current Medications Sig/Fariba Start time Last Medication Dose Route Stop Time Status Admin Acetaminophen 650 MG Q8 05/19 1400 AC 05/20 PO 05/21 0000 0530 Atorvastatin Calcium 40 MG DAILY 05/19 1000 AC 05/20 PO 1046 Cholecalciferol 1,000 IU DAILY 05/19 1000 AC 05/20 PO 1045 Escitalopram Oxalate 10 MG DAILY 05/19 1000 AC 05/20 PO 1046 Ezetimibe 10 MG DAILY 05/19 1000 AC 05/20 PO 1046 Fluocinonide 1 CATHY BID 05/18 2203 AC 05/20 EXT 1046 Heparin Sodium 5,000 UNIT Q8 05/19 0600 AC 05/20 (Porcine) SC 0530 Ibuprofen 400 MG Q6P PRN 05/19 0830 AC 05/20 PO 0530 Levothyroxine Sodium 0.05 MG DAILY AC 05/19 0700 AC 05/20 PO 0530 Morphine Sulfate 2 MG Q4P PRN 05/18 2215 AC 05/19 IV 0707 Oxycodone HCl 15 MG .STK-MED ONE 05/20 0208 DC PO 05/20 0209 Potassium Chloride 10 MEQ ONCE ONE 05/20 1130 DC PO 05/20 1131 Vancomycin HCl 1,500 MG Q12 05/19 1000 AC 05/20 Sodium Chloride 250 ML IV 1046 Last 24 Hrs of Lab/[place] Results Last 24 Hrs of Labs/Mics: Laboratory Tests 05/20/16 0620: Anion Gap 12, Estimated GFR > 60, BUN/Creatinine Ratio 17.5, CBC w Diff NO MAN DIFF REQ, RBC 4.68 L, MCV 88.5, MCH 29.6, RDW 12.9, MPV 7.0 L, Gran % 61.8, Lymphocytes % 26.0, Monocytes % 10.8 H, Eosinophils % 0.9, Basophils % 0.5, Absolute Granulocytes 6.3, Absolute Lymphocytes 2.7, Absolute Monocytes 1.1 H, Absolute Eosinophils 0.1, Absolute Basophils 0, PUBS MCHC 33.5 Assessment/Plan Assessment: 56-year-old gentleman with past medical history of psoriasis, MRSA cellulitis, hyperlipidemia, hypothyroidism, depression came to the hospital with failed outpatient therapy for cellulitis. Assessment -Possible MRSA cellulitis -Psoriasis -Hypothyroidism plan -continue IV vancomycin BID,WBC is trending down - blood cultures pending -d/c celexbocib, acetaminophen 625 Q8,motrin prn for moderate pain , IV morphine for pain -Consult surgery for I&D and send sample for Cx -Continue SSRI, levothyroxine, Zetia -Continue steroid cream for psoriasis -DVT prophylaxis Alps and heparin sub Q, heart healthy diet, full code Problem List: 1. Abscess and cellulitis 2. Cellulitis 3. Leukocytosis 4. Failure of outpatient treatment Pain Ratin Pain Location: right foot Pain Goal: Pain 4 or less Pain Plan: tylenol Tomorrow's Labs & Rationales: cbc chem patient has active infection on IV Vancomycin DVT/Prophylaxis: pharmacological
--- NOTE | 2016-05-20 13:24 | PN- Infect Dx ---
Subjective Subjective: Afebrile. He still complains of pain over the dorsum of his right foot. Objective Last 24 Hrs of Vital Signs/I&O Vital Signs Date Time Temp Pulse Resp B/P Pulse O2 O2 Flow FiO2 Ox Delivery Rate 05/20 0832 97.4 78 20 108/60 94 Room Air 05/20 0038 97.5 68 20 104/70 92 Room Air 05/19 1607 97.4 81 20 142/86 95 Intake & Output 05/20 1600 05/20 0800 05/20 0000 Intake Total 850 300 Output Total 500 Balance 350 300 Intake, IV 250 Intake, Oral 600 300 Output, Urine 500 Physical Exam Other Physical Findings: He appears comfortable in no acute distress Skin diffuse erythema decreased, but with multiple psoriatic lesions on his trunk and extremities Extremities localized erythema and swelling over the dorsum of the right foot, quite tender to palpation Results Last 24 Hours of Lab Results: Laboratory Tests 05/20 0620 Chemistry Sodium (137 - 145 mmol/L) 138 Potassium (3.5 - 5.1 mmol/L) 3.8 Chloride (98 - 107 mmol/L) 100 Carbon Dioxide (22 - 30 mmol/L) 26 Anion Gap (5 - 16) 12 BUN (9 - 20 mg/dL) 14 Creatinine (0.7 - 1.2 mg/dL) 0.8 Estimated GFR (>60 ml/min) > 60 BUN/Creatinine Ratio (7 - 25 %) 17.5 Hematology CBC w Diff NO MAN DIFF REQ WBC (4.8 - 10.8 /CUMM) 10.3 RBC (4.70 - 6.10 /CUMM) 4.68 L Hgb (14.0 - 18.0 G/DL) 13.9 L Hct (42 - 52 %) 41.4 L MCV (80.0 - 94.0 FL) 88.5 MCH (27.0 - 31.0 PG) 29.6 RDW (11.5 - 14.5 %) 12.9 Plt Count (130 - 400 /CUMM) 242 MPV (7.4 - 10.4 FL) 7.0 L Gran % (42.2 - 75.2 %) 61.8 Lymphocytes % (20.5 - 51.1 %) 26.0 Monocytes % (1.7 - 9.3 %) 10.8 H Eosinophils % (0 - 5 %) 0.9 Basophils % (0.0 - 2.0 %) 0.5 Absolute Granulocytes (1.4 - 6.5 /CUMM) 6.3 Absolute Lymphocytes (1.2 - 3.4 /CUMM) 2.7 Absolute Monocytes (0.10 - 0.60 /CUMM) 1.1 H Absolute Eosinophils (0.0 - 0.7 /CUMM) 0.1 Absolute Basophils (0.0 - 0.2 /CUMM) 0 PUBS MCHC (33.0 - 37.0 G/DL) 33.5 Last 24 Hours of [place] Results: Blood cultures May 19 negative Recent Imaging Studies: Ultrasound of the right foot May 19 reveals a fluid collection, measuring 2.4 x 0.6 x 2.7 cm, consistent with an abscess Assessment/Plan Impression: Stable with temperatures remain normal and white blood cell count now normal on empiric treatment with Vancomycin Day 2 of treatment for purulent cellulitis, presumably secondary to MRSA, with ultrasound revealing a small collection, consistent with an abscess. Feel that this would benefit from an I&D, which will reduce his discomfort, facilitate resolution of the infection and confirm the suspected organism responsible for this infection. Suggestion: 1. Surgical or Podiatry evaluation for an I&D of the right foot lesion 2. Continue Vancomycin pending above
[2016-05-20 15:39] VITALS: BP 130/90
--- NOTE | 2016-05-20 17:57 | Cons- Podiatry ---
General Information and HPI Consulting Request Date of Consult: 05/20/16 Requested By: BERNIE CHEEK MD AMan History of Present Illness: Bernie is a 56-year-old male who complains of worsening redness and pain to the dorsal aspect of his right foot. The patient noticed a blister which developed approximately 1 week ago for which she presented to the ER and was given by mouth antibiotics. The patient failed to improve and return to the ER and was ultimately admitted. Of note, patient has a history of a right knee MRSA infection. Allergies/Medications Allergies: Coded Allergies: NO KNOWN ALLERGIES (08/14/11) Home Med List: Amoxicillin 875 MG TABLET 1 TAB PO BID CELLULITIS Atorvastatin Calcium 40 MG TABLET 1 TAB PO DAILY CHOLESTEROL (Reported) Celecoxib 200 MG CAPSULE 1 CAP PO DAILY PSORIATIC ARTHRITIS (Reported) Cholecalciferol (Vitamin D3) (Vitamin D) 2,000 UNIT TABLET 1 TAB PO DAILY SUPPLEMENT (Reported) Cyanocobalamin (Vitamin B-12) (Cyanocobalamin Injection) 1,000 MCG/ML VIAL 1 ML IM Q2W SUPPLEMENT (Reported) Diflorasone Diacetate 0.05 % OINT...G. 1 CATHY TOP AD PRN PSORIASIS (Reported) Diflorasone Diacetate 0.05 % CREAM..G. 1 CATHY TOP AD PRN PSORIASIS (Reported) Escitalopram Oxalate 10 MG TABLET 1 TAB PO DAILY ANXIETY/DEPRESSION (Reported ) Ezetimibe (Zetia) 10 MG TABLET 1 TAB PO DAILY CHOLESTEROL (Reported) Folic Acid (Unknown Strength) CAPSULE (Unknown Dose) PO DAILY SUPPLEMENT ( Reported) Levothyroxine Sodium (Synthroid) 50 MCG TABLET 1 TAB PO DAILY THYROID ( Reported) Methylprednisolone 4 MG TAB.DS.PK STEROID TAPER (Reported) Mupirocin 2 % OINT...G. 1 CATHY TOP TID RIGHT FOOT (Reported) apply to affected area(s) Sildenafil Citrate (Viagra) 50 MG TABLET 1 TAB PO AD PRN ED (Reported) 1 hour before sexual activity Sulfamethoxazole/Trimethoprim (Bactrim Ds Tablet) 800 MG-160 MG TABLET 1 TAB PO BID CELLULITIS Past History Medical History Blood Transfusion Hx: No Neurological: NONE EENT: NONE Cardiovascular: HIGH CHOLESTEROL Respiratory: NONE Gastrointestinal: NONE Hepatic: NONE Renal: NONE Psychiatric: depression Endocrine: HYPOTHYROID Blood Disorders: NONE Cancer(s): NONE Other Medical Hx: Psoriasis Surgical History Pertinent Surgical History: non-contributory Psychosocial History Where Do You Live? Home Smoking Status: Former Smoker ETOH Use: denies use Illicit Drug Use: denies illicit drug use Review of Systems Review of Systems: Unremarkable except for that noted in history present illness Exam & Diagnostic Data Vital Signs and I&O Vital Signs Date Time Temp Pulse Resp B/P Pulse O2 O2 Flow FiO2 Ox Delivery Rate 05/20 1539 97.6 112 20 130/90 95 Room Air 05/20 0832 97.4 78 20 108/60 94 Room Air 05/20 0038 97.5 68 20 104/70 92 Room Air Intake & Output 05/20 1600 05/20 0800 05/20 0000 05/19 1600 05/19 0800 05/19 0000 Intake Total 1150 213 684 9402 250 100 Output Total 650 500 Balance 500 802 577 0422 250 100 Intake, IV 250 250 300 250 100 Intake, Oral 900 600 300 720 Number 0 1 Bowel Movements Output, Urine 650 500 Patient 260 lb Weight Physical Exam: Small area of eschar noted over the dorsum of the right foot with fluctuance noted extending proximally and distally to the lesion. Some pain noted with deep palpation. No crepitus identified. Assessment/Plan Assessment/Plan Right foot cellulitis with dorsal space abscess. 2-3 cc of purulence aspirated at bedside with the pesticide use medical coordinator. The specimen was sent for culture and sensitivity. Recommend formal I&D of his dorsal space abscess will make the patient nothing by mouth for tomorrow. Consult Acknowledgment - Thank you for your consult request. Attending MD Review Statement Attending Statement Attending MD Statement: examined this patient
[2016-05-21 00:45] VITALS: BP 112/70
--- NOTE | 2016-05-21 07:25 | PN- Att Addend ---
Attending Addendum Attending Brief Note Intake & Output 05/21 0805/21 0000 05/20 1600 Intake Total 1050 1150 Output Total 475 525 650 Balance -475 525 500 Intake, IV 250 250 Intake, Oral 800 900 Number 0 Bowel Movements Output, Urine 475 525 650 Current Medications Sig/Fariba Start time Last Medication Dose Route Stop Time Status Admin Acetaminophen 650 MG Q8 05/19 1400 DC 05/20 PO 05/21 0000 2106 Atorvastatin Calcium 40 MG DAILY 05/19 1000 AC 05/20 PO 1046 Cholecalciferol 1,000 IU DAILY 05/19 1000 AC 05/20 PO 1045 Escitalopram Oxalate 10 MG DAILY 05/19 1000 AC 05/20 PO 1046 Ezetimibe 10 MG DAILY 05/19 1000 AC 05/20 PO 1046 Fluocinonide 1 CATHY BID 05/18 2203 AC 05/20 EXT 2106 Heparin Sodium 5,000 UNIT Q8 05/19 0600 AC 05/20 (Porcine) SC 2106 Ibuprofen 400 MG Q6P PRN 05/19 0830 AC 05/21 PO 0608 Levothyroxine Sodium 0.05 MG DAILY AC 05/19 0700 AC 05/21 PO 0608 Lidocaine 20 ML .STK-MED ONE 05/20 1712 DC IA 05/20 1713 Morphine Sulfate 2 MG Q4P PRN 05/18 2215 DC 05/19 IV 0707 Oxycodone HCl 5 MG ONCE ONE 05/21 0430 DC 05/21 PO 05/21 0431 0421 Oxycodone HCl 5 MG Q6P PRN 05/20 1430 AC 05/21 PO 0309 Patient Medication 1 ED .STK-MED ONE 05/20 1336 DC Teaching ED 05/20 1337 Potassium Chloride 10 MEQ ONCE ONE 05/20 1130 DC 05/20 PO 05/20 1131 1312 Vancomycin HCl 1,500 MG Q12 05/19 1000 AC 05/20 Sodium Chloride 250 ML IV 2106 Laboratory Tests 05/20 1744 Other Body Source Fluid Glucose Cancelled Microbiology Date/Time Procedure - Status Source Growth 05/20 174 Body Fluid Culture - RECD BODY FLUID 05/20 174 Gram Stain - RECD BODY FLUID Vital Signs Date Time Temp Pulse Resp B/P Pulse O2 O2 Flow FiO2 Ox Delivery Rate 05/21 0045 97.6 60 20 112/70 91 Room Air 05/20 1539 97.6 112 20 130/90 95 Room Air 05/20 0832 97.4 78 20 108/60 94 Room Air Intake & Output 05/21 0800 05/21 0000 05/20 1600 Intake Total 1050 1150 Output Total 475 525 650 Balance -475 525 500 Intake, IV 250 250 Intake, Oral 800 900 Number 0 Bowel Movements Output, Urine 475 525 650 Attending note. Moderate amount of pain and discomfort in the right foot patient will go to the OR this morning for debridement and the cleaning of the wound. On IV vancomycin.
[2016-05-21 08:05] LABS: ABSOLUTE BASOPHIL COUNT 0 /CUMM (0.0-0.2); ABSOLUTE EOSINOPHIL COUNT 0.1 /CUMM (0.0-0.7); ABSOLUTE GRANULOCYTE CT 8.5 /CUMM (1.4-6.5); ABSOLUTE LYMPH COUNT 2.2 /CUMM (1.2-3.4); ABSOLUTE MONOCYTE COUNT 1.2 /CUMM (0.10-0.60); BASOPHIL % 0.4 % (0.0-2.0); EOSINOPHIL % 0.5 % (0-5); GRANULOCYTE % 70.8 % (42.2-75.2); HEMATOCRIT 40.5 % (42-52); MEAN CORPUSCULAR HGB 29.9 PG (27.0-31.0); MEAN CORPUSCULAR HGB CONC 33.8 G/DL (33.0-37.0); MEAN CORPUSCULAR VOLUME 88.4 FL (80.0-94.0); MEAN PLATELET VOLUME 7.2 FL (7.4-10.4); PLATELET COUNT 247 /CUMM (130-400); RBC DISTRIBUTION WIDTH 12.8 % (11.5-14.5); RED BLOOD CELL CT 4.58 /CUMM (4.70-6.10)
[2016-05-21 08:56] VITALS: BP 116/68
--- NOTE | 2016-05-21 09:51 | PN- Housestaff ---
Subjective Follow-up For: Right foot soft tissue infection and abscess Complaints: right foot pain spike of fever and chill last night Subjective: Patient was visited and examined this morning. He is nothing by mouth for incision and drainage by Dr. Castelan. Complains of severe right foot pain and he also reports one episode of shaking chills last night. Vital signs are stable. Review of Systems Constitutional: Reports: chills. Denies: diaphoresis, fever, malaise, weakness, unexplained weight loss. EENTM: Denies: blurred vision, double vision, visual changes, eye pain, eye drainage, eye tearing, icterus, ear discharge, ear pain, ear redness, hearing changes, nasal congestion, epistaxis, nasal pain, throat pain, throat swelling, mouth pain, tooth pain. Cardiovascular: Denies: chest pain, edema, orthopena, palpitations, peripheral edema, syncope. Respiratory: Denies: cough, hemoptysis, orthopnea, short of breath, sputum production, stridor, wheezing. Skin: Reports: see HPI, change in skin color, dryness, erythema, lesions, rash. Objective Last 24 Hrs of Vital Signs/I&O Vital Signs Date Time Temp Pulse Resp B/P Pulse O2 O2 Flow FiO2 Ox Delivery Rate 05/21 0856 98.1 77 20 116/68 92 Room Air 05/21 0045 97.6 60 20 112/70 91 Room Air 05/20 1539 97.6 112 20 130/90 95 Room Air Intake & Output 05/21 1600 05/21 0800 05/21 0000 Intake Total 0 1050 Output Total 475 525 Balance -475 525 Intake, IV 250 Intake, Oral 0 800 Output, Urine 475 525 Physical Exam General Appearance: Alert, Oriented X3, Cooperative, No Acute Distress Skin: psoriatic his skin lesions, erythema with induration on right foot, warmth tender to touch, HEENT: Atraumatic, PERRLA, EOMI, Mucous Membr. moist/pink Cardiovascular: Regular Rate, Normal S1, Normal S2, No Murmurs, Gallops, Rubs Lungs: Clear to Auscultation, Normal Air Movement Abdomen: Soft, No Tenderness Current Medications: Current Medications Sig/Fariba Start time Last Medication Dose Route Stop Time Status Admin Acetaminophen 650 MG Q8 05/19 1400 DC 05/20 PO 05/21 0000 2106 Atorvastatin Calcium 40 MG DAILY 05/19 1000 AC 05/20 PO 1046 Cholecalciferol 1,000 IU DAILY 05/19 1000 AC 05/20 PO 1045 Escitalopram Oxalate 10 MG DAILY 05/19 1000 AC 05/20 PO 1046 Ezetimibe 10 MG DAILY 05/19 1000 AC 05/20 PO 1046 Fluocinonide 1 CATHY BID 05/18 2203 AC 05/20 EXT 2106 Heparin Sodium 5,000 UNIT Q8 05/19 0600 AC 05/20 (Porcine) SC 2106 Ibuprofen 400 MG Q6P PRN 05/19 0830 AC 05/21 PO 0608 Levothyroxine Sodium 0.05 MG DAILY AC 05/19 0700 AC 05/21 PO 0608 Lidocaine 20 ML .STK-MED ONE 05/20 1712 DC IA 05/20 1713 Morphine Sulfate 2 MG Q4P PRN 05/18 2215 DC 05/19 IV 0707 Oxycodone HCl 5 MG ONCE ONE 05/21 0430 DC 05/21 PO 05/21 0431 0421 Oxycodone HCl 5 MG Q6P PRN 05/20 1430 AC 05/21 PO 0309 Patient Medication 1 ED .STK-MED ONE 05/20 1336 DC Teaching ED 05/20 1337 Potassium Chloride 10 MEQ ONCE ONE 05/20 1130 DC 05/20 PO 05/20 1131 1312 Vancomycin HCl 1,500 MG Q12 05/19 1000 AC 05/20 Sodium Chloride 250 ML IV 2106 Last 24 Hrs of Lab/[place] Results Last 24 Hrs of Labs/Mics: Laboratory Tests 05/21/16 0652: Anion Gap 15, Estimated GFR > 60, BUN/Creatinine Ratio 13.3, CBC w Diff NO MAN DIFF REQ, RBC 4.58 L, MCV 88.4, MCH 29.9, RDW 12.8, MPV 7.2 L, Gran % 70.8, Lymphocytes % 18.5 L, Monocytes % 9.8 H, Eosinophils % 0.5, Basophils % 0.4, Absolute Granulocytes 8.5 H, Absolute Lymphocytes 2.2, Absolute Monocytes 1.2 H, Absolute Eosinophils 0.1, Absolute Basophils 0, PUBS MCHC 33.8 05/20/16 1744: Fluid Glucose Cancelled Microbiology 05/20 1743 EXTREMITIE: Culture & Sensitivity - RES STAPH AUREUS 05/20 1743 EXTREMITIE: Gram Stain - RES 05/20 1743 BODY FLUID: Body Fluid Culture - CAN Cancelled: WRONG GENERAL ACTIVITIES THERAPIST 05/20 1743 BODY FLUID: Gram Stain - CAN Cancelled: WRONG GENERAL ACTIVITIES THERAPIST Assessment/Plan Assessment: 56-year-old gentleman with past medical history of psoriasis, Hx of MRSA cellulitis, was admitted for right foot cellulitis that failed outpatient antibiotic treatment. Assessment -Possible MRSA cellulitis -Psoriasis -Hypothyroidism plan -continue IV vancomycin BID,WBC is trending down -check Vanc-Trough; The new MRSA guidelines recommend troughs of 1520 mg/dl for serious skin and skin-structure infections. -Abscess drainage: Culture grew Staphylococcus aureus; and to bag him results are pending - blood cultures pending -Incision and drainage by Dr. Castelan today -Continue SSRI, levothyroxine, Zetia -Continue steroid cream for psoriasis -DVT prophylaxis Alps and heparin sub Q, heart healthy diet, full code Problem List: 1. Abscess and cellulitis 2. Cellulitis 3. Leukocytosis 4. Failure of outpatient treatment Pain Ratin Pain Location: Right foot Pain Goal: Pain 4 or less Pain Plan: Morphine Tomorrow's Labs & Rationales: CBC and BEP Patient has active infection in his right foot On vancomycin check renal function Consulting Request: Consulting Specialty: Infectious Disease
--- NOTE | 2016-05-21 10:45 | NUR ---
NURSING NOTE: ONE TIME OF IV DILAUDID ORDERED BY POWER PLANT MANAGER, PT STATES "I DONT NEED IT NOW" CONT TO DR LUPE BRISENO AWARE
[2016-05-21 12:07] VITALS: BP 118/68
--- NOTE | 2016-05-21 13:59 | PN- Infect Dx ---
Subjective Subjective: Afebrile. He is quite upset regarding the delay in surgery, which was apparently scheduled for one hour ago, and for the fact that he has been here 3 days and is first going for surgery today. He reports increased pain and swelling of the right foot. Objective Last 24 Hrs of Vital Signs/I&O Vital Signs Date Time Temp Pulse Resp B/P Pulse O2 O2 Flow FiO2 Ox Delivery Rate 05/21 1207 97.9 78 20 118/68 97 Room Air 05/21 0856 98.1 77 20 116/68 92 Room Air 05/21 0045 97.6 60 20 112/70 91 Room Air 05/20 1539 97.6 112 20 130/90 95 Room Air Intake & Output 05/21 1600 05/21 0800 05/21 0000 Intake Total 0 1050 Output Total 475 525 Balance -475 525 Intake, IV 250 Intake, Oral 0 800 Output, Urine 475 525 Physical Exam Other Physical Findings: He is visibly upset and somewhat verbally abusive. Extremities swelling and erythema over the dorsum of the right foot, tender to palpation Results Last 24 Hours of Lab Results: Laboratory Tests 05/21 05/20 0652 1744 Chemistry Sodium (137 - 145 mmol/L) 138 Potassium (3.5 - 5.1 mmol/L) 4.1 Chloride (98 - 107 mmol/L) 98 Carbon Dioxide (22 - 30 mmol/L) 26 Anion Gap (5 - 16) 15 BUN (9 - 20 mg/dL) 12 Creatinine (0.7 - 1.2 mg/dL) 0.9 Estimated GFR (>60 ml/min) > 60 BUN/Creatinine Ratio (7 - 25 %) 13.3 Hematology CBC w Diff NO MAN DIFF REQ WBC (4.8 - 10.8 /CUMM) 12.0 H RBC (4.70 - 6.10 /CUMM) 4.58 L Hgb (14.0 - 18.0 G/DL) 13.7 L Hct (42 - 52 %) 40.5 L MCV (80.0 - 94.0 FL) 88.4 MCH (27.0 - 31.0 PG) 29.9 RDW (11.5 - 14.5 %) 12.8 Plt Count (130 - 400 /CUMM) 247 MPV (7.4 - 10.4 FL) 7.2 L Gran % (42.2 - 75.2 %) 70.8 Lymphocytes % (20.5 - 51.1 %) 18.5 L Monocytes % (1.7 - 9.3 %) 9.8 H Eosinophils % (0 - 5 %) 0.5 Basophils % (0.0 - 2.0 %) 0.4 Absolute Granulocytes (1.4 - 6.5 /CUMM) 8.5 H Absolute Lymphocytes (1.2 - 3.4 /CUMM) 2.2 Absolute Monocytes (0.10 - 0.60 /CUMM) 1.2 H Absolute Eosinophils (0.0 - 0.7 /CUMM) 0.1 Absolute Basophils (0.0 - 0.2 /CUMM) 0 PUBS MCHC (33.0 - 37.0 G/DL) 33.8 Other Body Source Fluid Glucose Cancelled Last 24 Hours of [place] Results: Blood cultures 2 May 19 negative Right foot abscess May 20 positive for Staph aureus Assessment/Plan Impression: Abscess over the dorsum of the right foot, status post aspiration of 2-3 cc of pus yesterday, with culture positive for Staph aureus, likely MRSA given his history of MRSA, with plans for a formal I&D this afternoon. He remains afebrile but white blood cell count is increased today likely secondary to a residual collection within the foot. He remains on empiric treatment with Vancomycin Day 3. Suggestion: 1. Await formal I&D in the OR later today 2. Follow-up final cultures 3. Continue Vancomycin pending above
[2016-05-21 15:56] VITALS: BP 114/84
--- NOTE | 2016-05-21 17:46 | Operative Report ---
Operative/Inv Procedure Report Surgery Date: 05/21/16 Name of Procedure: 1 open incision and drainage deep to the D fashion with exposure of the extensor tendon and tendon sheath multiple sites right foot 2 intraoperative administration of ankle block anesthesia Pre-Operative Diagnosis: 1 dorsal space abscess right foot Post-Operative Diagnosis: Same Estimated Blood Loss: less than 50ml Surgeon/Home Theatre Technician: JESSICA SALMON DPM Anesthesia: moderate sedation, block Operative/Procedure Note Note: After obtaining informed consent the patient was brought to the operating room and placed on the operating table in the supine position. The patient isn't securely fastened to the operating table utilizing safety belt. After administration of IV sedation, 10 mL of 0.5% Marcaine plain was infiltrated about the patient's right ankle. The right foot and ankle within scrubbed prepped and draped in usual aseptic manner. Attention directed dorsal aspect the right foot where a 5 cm linear incision was made over the first interspace. Skin was as a 15 blade and deepened subtenons tissues. Dissection was then carried down deep to the D fashion with exposure of the extensor tendon and tendon sheath multiple sites, both proximally and distally. All necrotic nonviable infected tissue sharply evacuated from the wound bed. The 10-15 mL of thick purulence was evacuated from the open wound. Following this, the wound was irrigated with 3 L normal normal sterile saline fissure 50,000 units of bacitracin. Following this the foot was redraped and the surgeon's top gloves were changed clean gloves. Any bleeding vessels identified were cauterized or ligated as encountered. Nipple was then packed with half-inch iodoform and 3-0 nylon retention sutures were placed followed by 4 x 4's Kerlix and Mak wrap. The patient was noted to tolerate both procedure and anesthesia well and the patient was transported from the operating room to recovery by sent stable best assess intact all digits right foot.
--- NOTE | 2016-05-21 19:00 | NUR ---
1645 PT OFF THE FLOOR TO THE O.R. A+O X3, ON R/A, VSS, NO S/O DISTRESS 1855 PT BACK FORM THE O.R. A+O X3, ON RA, NO S/O DISTRESS, VSS.
[2016-05-21 19:17] VITALS: BP 126/68
[2016-05-22 00:40] VITALS: BP 102/72
--- NOTE | 2016-05-22 07:28 | PN- Att Addend ---
Attending Addendum Attending Brief Note Intake & Output 05/22 0000 05/21 1600 Intake Total 600 250 Output Total 550 Balance 600 -300 Intake, IV 250 Intake, Oral 600 0 Number 0 Bowel Movements Output, Urine 550 Current Medications Sig/Fariba Start time Last Medication Dose Route Stop Time Status Admin Atorvastatin Calcium 40 MG DAILY 05/19 1000 AC 05/20 PO 1046 Cholecalciferol 1,000 IU DAILY 05/19 1000 AC 05/20 PO 1045 Escitalopram Oxalate 10 MG DAILY 05/19 1000 AC 05/20 PO 1046 Ezetimibe 10 MG DAILY 05/19 1000 AC 05/20 PO 1046 Fentanyl Citrate 100 MCG .STK-MED ONE 05/21 1654 DC IM 05/21 1655 Fentanyl Citrate 250 MCG .STK-MED ONE 05/21 1213 DC IM 05/21 1214 Fluocinonide 1 CATHY BID 05/18 2203 AC 05/20 EXT 2106 Heparin Sodium 5,000 UNIT Q8 05/19 0600 AC 05/22 (Porcine) SC 0625 Hydromorphone HCl 0.4 MG ONCE PRN 05/21 1000 AC 05/21 IV 1400 Ibuprofen 400 MG Q6P PRN 05/19 0830 AC 05/22 PO 0642 Ketorolac 30 MG .STK-MED ONE 05/21 1741 DC Tromethamine IM 05/21 1742 Levothyroxine Sodium 0.05 MG DAILY AC 05/19 0700 AC 05/22 PO 0625 Midazolam HCl 2 MG .STK-MED ONE 05/21 1654 DC IM 05/21 1655 Oxycodone HCl 5 MG Q6P PRN 05/20 1430 AC 05/21 PO 1202 Vancomycin HCl 1,500 MG Q12 05/19 1000 AC 05/21 Sodium Chloride 250 ML IV 2238 Vital Signs Date Time Temp Pulse Resp B/P Pulse O2 O2 Flow FiO2 Ox Delivery Rate 05/22 0040 97.8 97 18 102/72 93 Room Air 05/21 1917 97.6 86 18 126/68 96 Room Air Room Air 05/21 1556 98.9 80 18 114/84 92 Room Air 05/21 1207 97.9 78 20 118/68 97 Room Air 05/21 0856 98.1 77 20 116/68 92 Room Air Intake & Output 05/22 0000 05/21 1600 Intake Total 600 250 Output Total 550 Balance 600 -300 Intake, IV 250 Intake, Oral 600 0 Number 0 Bowel Movements Output, Urine 550 Attending note. Status post debridement of the wound, pain is markedly decreased redness swelling of the foot is decreased patient is currently on IV vancomycin.
[2016-05-22 08:13] VITALS: BP 104/71
--- NOTE | 2016-05-22 09:04 | PN- Housestaff ---
Subjective Follow-up For: Staphylococcus Aureus Abscess and cellulitis Complaints: mild back and right foot pain Subjective: S/P I&D #1, pain and swelling of the right foot has decreased to 2-3 out of 10 on pain scale of 10. He is in good mood and offers no complains. VS are stable. Review of Systems Constitutional: Denies: chills, diaphoresis, fever, malaise, weakness, unexplained weight loss. EENTM: Denies: blurred vision, double vision, visual changes, eye pain, eye drainage, eye tearing, icterus, ear discharge, ear pain, ear redness, hearing changes, nasal congestion, epistaxis, nasal pain, throat pain, throat swelling, mouth pain, tooth pain. Cardiovascular: Denies: chest pain, edema, orthopena, palpitations, peripheral edema, syncope. Respiratory: Denies: cough, hemoptysis, orthopnea, short of breath, sputum production, stridor, wheezing. Skin: Reports: see HPI, change in skin color, dryness, lesions. Neurological/Psychological: Reports: see HPI. Objective Last 24 Hrs of Vital Signs/I&O Vital Signs Date Time Temp Pulse Resp B/P Pulse O2 O2 Flow FiO2 Ox Delivery Rate 05/22 0813 97.4 75 20 104/71 94 Room Air 05/22 0040 97.8 97 18 102/72 93 Room Air 05/21 1917 97.6 86 18 126/68 96 Room Air Room Air 05/21 1556 98.9 80 18 114/84 92 Room Air 05/21 1207 97.9 78 20 118/68 97 Room Air Intake & Output 05/22 1600 05/22 0800 05/22 0000 Intake Total 240 600 Output Total Balance 240 600 Intake, Oral 240 600 Physical Exam General Appearance: Alert, Oriented X3, Cooperative, No Acute Distress Skin: erythema of the right foot, abscess s/p I&D #1, in dressing, psoriatic skin lesions HEENT: Atraumatic, PERRLA, EOMI, Mucous Membr. moist/pink Lymphatic: Axillary nl, Cervical nl Cardiovascular: Regular Rate, Normal S1, Normal S2, No Murmurs, Gallops, Rubs Lungs: Clear to Auscultation, Normal Air Movement Extremities: No Edema Current Medications: Current Medications Sig/Fariba Start time Last Medication Dose Route Stop Time Status Admin Atorvastatin Calcium 40 MG DAILY 05/19 1000 AC 05/22 PO 0852 Cholecalciferol 1,000 IU DAILY 05/19 1000 AC 05/22 PO 0852 Escitalopram Oxalate 10 MG DAILY 05/19 1000 AC 05/22 PO 0852 Ezetimibe 10 MG DAILY 05/19 1000 AC 05/22 PO 0852 Fentanyl Citrate 100 MCG .STK-MED ONE 05/21 1654 DC IM 05/21 1655 Fentanyl Citrate 250 MCG .STK-MED ONE 05/21 1213 DC IM 05/21 1214 Fluocinonide 1 CATHY BID 05/18 2203 AC 05/22 EXT 0853 Heparin Sodium 5,000 UNIT Q8 05/19 0600 AC 05/22 (Porcine) SC 0625 Hydromorphone HCl 0.4 MG ONCE PRN 05/21 1000 AC 05/21 IV 1400 Ibuprofen 400 MG Q6P PRN 05/19 0830 AC 05/22 PO 0642 Ketorolac 30 MG .STK-MED ONE 05/21 1741 DC Tromethamine IM 05/21 1742 Levothyroxine Sodium 0.05 MG DAILY AC 05/19 0700 AC 05/22 PO 0625 Midazolam HCl 2 MG .STK-MED ONE 05/21 1654 DC IM 05/21 1655 Oxycodone HCl 5 MG Q6P PRN 05/20 1430 AC 05/21 PO 1202 Vancomycin HCl 1,500 MG Q12 05/19 1000 AC 05/21 Sodium Chloride 250 ML IV 2238 Assessment/Plan Assessment: 56-year-old gentleman with past medical history of psoriasis, Hx of MRSA cellulitis, was admitted for right foot cellulitis that failed outpatient antibiotic treatment. Assessment -Possible MRSA cellulitis -Psoriasis -Hypothyroidism plan -continue IV vancomycin BID,WBC is trending down -check Vanc-Trough- sent today; The new MRSA guidelines recommend troughs of 15 -Abscess drainage: Culture grew Staphylococcus aureus; and to bag him results are pending - blood cultures pending -Incision and drainage by Dr. Castelan today -Continue SSRI, levothyroxine, Zetia -Continue steroid cream for psoriasis -DVT prophylaxis Alps and heparin sub Q, heart healthy diet, full code Problem List: 1. Abscess and cellulitis Pain Ratin Pain Location: lower extremity Pain Goal: Pain 4 or less Pain Plan: morphine tylenol Tomorrow's Labs & Rationales: bep Consulting Request: Consulting Specialty: Infectious Disease
--- NOTE | 2016-05-22 15:30 | PN- Infect Dx ---
Subjective Subjective: Afebrile. He feels much improved with decreased pain over the dorsum of the right foot. Objective Last 24 Hrs of Vital Signs/I&O Vital Signs Date Time Temp Pulse Resp B/P Pulse O2 O2 Flow FiO2 Ox Delivery Rate 05/22 812 97.4 75 20 104/71 94 Room Air 05/22 0040 97.8 97 18 102/72 93 Room Air 05/21 1917 97.6 86 18 126/68 96 Room Air Room Air 05/21 1556 98.9 80 18 114/84 92 Room Air Intake & Output 05/22 1600 05/22 0800 05/22 0000 Intake Total 1150 240 600 Output Total 1000 Balance 150 240 600 Intake, IV 250 Intake, Oral 900 240 600 Number 1 Bowel Movements Output, Urine 1000 Patient 260 lb Weight Physical Exam Other Physical Findings: He appears comfortable in no acute distress Extremities right foot dressing intact Results Last 24 Hours of Lab Results: Laboratory Tests 05/22 05/22 1200 1128 Toxicology Vancomycin Trough Cancelled Cancelled Last 24 Hours of [place] Results: Right foot abscess May 20 from aspiration at the bedside positive for MRSA Blood cultures 2 May 19 negative Assessment/Plan Impression: Stable status post I&D of a right foot abscess yesterday with 10-15 mL of pus drained. He remains afebrile with last white blood cell count, prior to the I&D , slightly elevated on Vancomycin for MRSA isolated from the recent culture obtained from the aspiration at the bedside. Have spoken with Podiatry, who left the wound open and plans to take him back to the OR on May 25 for closure. Suggestion: 1. Vancomycin trough level with next dose 2. Await return to the OR on May 25 3. Continue Vancomycin
[2016-05-22 16:21] VITALS: BP 134/74
[2016-05-23 00:47] VITALS: BP 114/74
--- NOTE | 2016-05-23 07:56 | PN- Att Addend ---
Attending Addendum Attending Brief Note Covering attending note. Patient is comfortable pain is markedly decreased. The right Leg is slightly enlarged and swollen but not very painful Afebrile vital signs are stable S1-S2 is normal Lungs are clear Abdomen is soft nontender bowel says are present Right leg is covered with bandage Assessment MRSA abscess on the right foot Calf swelling on the right leg. Rule out DVT, obtain a venous Doppler of the right leg. Status post debridement on IV vancomycin patient was going back to the OR on May 25.
[2016-05-23 07:59] LABS: ABSOLUTE BASOPHIL COUNT 0 /CUMM (0.0-0.2); ABSOLUTE EOSINOPHIL COUNT 0.2 /CUMM (0.0-0.7); ABSOLUTE GRANULOCYTE CT 5.7 /CUMM (1.4-6.5); ABSOLUTE MONOCYTE COUNT 0.9 /CUMM (0.10-0.60); BASOPHIL % 0.4 % (0.0-2.0); EOSINOPHIL % 1.8 % (0-5); GRANULOCYTE % 64.8 % (42.2-75.2); HEMATOCRIT 37.7 % (42-52); MEAN CORPUSCULAR HGB 30.5 PG (27.0-31.0); MEAN CORPUSCULAR VOLUME 87.1 FL (80.0-94.0); MEAN PLATELET VOLUME 6.9 FL (7.4-10.4); PLATELET COUNT 246 /CUMM (130-400); RBC DISTRIBUTION WIDTH 12.8 % (11.5-14.5); RED BLOOD CELL CT 4.32 /CUMM (4.70-6.10); WHITE BLOOD CELL COUNT 8.8 /CUMM (4.8-10.8)
[2016-05-23 08:32] VITALS: BP 110/63
--- NOTE | 2016-05-23 10:05 | PN- Housestaff ---
Subjective Follow-up For: Mrsa ABSCESS AND CELLULITIS Complaints: SWELLING OF HIS RIGHT FOOT Subjective: PATIENT REPORTS A NEW, WORSENING SWELLING AND TENDERNESS OF HIS RIGHT FOOT. NO FEVER, NO CHILLS. HE SLEPT WELL. Review of Systems Constitutional: Denies: chills, diaphoresis, fever, malaise, weakness, unexplained weight loss. EENTM: Denies: blurred vision, double vision, visual changes, eye pain, eye drainage, eye tearing, icterus, ear discharge, ear pain, ear redness, hearing changes, nasal congestion, epistaxis, nasal pain, throat pain, throat swelling, mouth pain, tooth pain. Cardiovascular: Denies: chest pain, edema, orthopena, palpitations, peripheral edema, syncope. Respiratory: Denies: cough, hemoptysis, orthopnea, short of breath, sputum production, stridor, wheezing. Gastrointestinal: Denies: abdominal pain, bloating, constipation, diarrhea, distention, bowel incontinence, melena, nausea, bloody stool, changes in stool, vomiting, steatorrhea. Genitourinary: Denies: discharge, dysuria, frequency, hematuria, hesitation, nocturia, pain, urgency. Musculoskeletal: Reports: see HPI. Skin: Reports: change in skin color, dryness, lesions, rash. Objective Last 24 Hrs of Vital Signs/I&O Vital Signs Date Time Temp Pulse Resp B/P Pulse O2 O2 Flow FiO2 Ox Delivery Rate 05/23 0832 97.5 61 20 110/63 94 Room Air 05/23 0047 97.9 70 20 114/74 96 05/22 1621 97.8 83 20 134/74 95 Intake & Output 05/23 1600 05/23 0800 05/23 0000 Intake Total 120 1070 Output Total 550 Balance -430 1070 Intake, IV 270 Intake, Oral 120 800 Output, Urine 550 Physical Exam General Appearance: Alert, Oriented X3, Cooperative, Mild Distress Skin: RASH ANMD SKIN BREAKAGE HEENT: Atraumatic, PERRLA, EOMI Neck: No JVD, No thryomegaly Lymphatic: Axillary nl, Cervical nl Cardiovascular: Normal S1, Normal S2, No Murmurs Lungs: Clear to Auscultation, Normal Air Movement Abdomen: Soft, No Tenderness, No Hepatospenomegaly Neurological: Normal Speech, Strength at 5/5 X4 Ext Extremities: No Clubbing, RIGHT FOOT IS TENDER TO TOUGH AND SLIGHTLY WARMER THAN THE LEFT SIDE. Current Medications: Current Medications Sig/Fariba Start time Last Medication Dose Route Stop Time Status Admin Atorvastatin Calcium 40 MG DAILY 05/19 1000 AC 05/22 PO 0852 Cholecalciferol 1,000 IU DAILY 05/19 1000 AC 05/22 PO 0852 Escitalopram Oxalate 10 MG DAILY 05/19 1000 AC 05/22 PO 0852 Ezetimibe 10 MG DAILY 05/19 1000 AC 05/22 PO 0852 Fluocinonide 1 CATHY BID 05/18 2203 AC 05/22 EXT 0853 Heparin Sodium 5,000 UNIT Q8 05/19 0600 AC 05/23 (Porcine) SC 0506 Hydromorphone HCl 0.4 MG ONCE PRN 05/21 1000 AC 05/21 IV 1400 Ibuprofen 400 MG .STK-MED ONE 05/22 1320 DC PO 05/22 1321 Ibuprofen 400 MG Q6P PRN 05/19 0830 AC 05/23 PO 0506 Levothyroxine Sodium 0.05 MG DAILY AC 05/19 0700 AC 05/23 PO 0505 Oxycodone HCl 5 MG Q6P PRN 05/20 1430 AC 05/23 PO 0506 Patient Medication 1 ED .STK-MED ONE 05/22 1329 DC Teaching ED 05/22 1330 Vancomycin HCl 1,500 MG Q12 05/19 1000 AC 05/22 Sodium Chloride 250 ML IV 2152 Last 24 Hrs of Lab/Sidney Results Last 24 Hrs of Labs/Mics: Laboratory Tests 05/23/16 0623: Anion Gap 12, Estimated GFR > 60, BUN/Creatinine Ratio 11.1, CBC w Diff NO MAN DIFF REQ, RBC 4.32 L, MCV 87.1, MCH 30.5, RDW 12.8, MPV 6.9 L, Gran % 64.8, Lymphocytes % 22.3, Monocytes % 10.7 H, Eosinophils % 1.8, Basophils % 0.4, Absolute Granulocytes 5.7, Absolute Lymphocytes 2.0, Absolute Monocytes 0.9 H, Absolute Eosinophils 0.2, Absolute Basophils 0, PUBS MCHC 35.0 05/22/16 2115: Vancomycin Trough 11.3 05/22/16 1200: Vancomycin Trough Cancelled 05/22/16 1128: Vancomycin Trough Cancelled Assessment/Plan Assessment: 56-year-old gentleman with past medical history of psoriasis, Hx of MRSA cellulitis, was admitted for right foot cellulitis that failed outpatient antibiotic treatment. Assessment -Possible MRSA cellulitis -Psoriasis -Hypothyroidism plan -continue IV vancomycin BID,WBC is trending down -check Vanc-Trough IS 11; ACCEPBIBLE AND WE WILL CONTINUE THE SAME DOSE. - blood cultures pending -REVISION incision and drainage by Dr. Castelan today -Continue SSRI, levothyroxine, Zetia -Continue steroid cream for psoriasis -DVT prophylaxis Alps and heparin sub Q, heart healthy diet, full code -follow results of the right leg doppler for DVT Problem List: 1. Abscess and cellulitis 2. Cellulitis 3. Leukocytosis 4. Failure of outpatient treatment Pain Ratin Pain Location: 5 Pain Goal: Pain 7 or less Pain Plan: tyeleni Tomorrow's Labs & Rationales: CBC bep DVT/Prophylaxis: mechanical Consulting Request: Consulting Specialty: Infectious Disease Attending MD Review Statement Attending Statement Attending MD Statement: examined this patient, discuss w/resident/PA/PRINTING MANAGER, agreed w/resident/PA/PRINTING MANAGER, discussed with family, reviewed EMR data (avail), discussed with nursing, discussed with case mgmt, reviewed images, amended to note
--- NOTE | 2016-05-23 12:15 | ULTRASOUND REPORT ---
EXAMINATION: US TRIPLEX LOWER EXTREMITY, RIGHT CLINICAL INFORMATION: Right leg swelling. COMPARISON: None. TECHNIQUE: Color-flow triplex imaging with spectral analysis and compression Doppler were performed on the right lower extremity. FINDINGS: Respiratory variation, normal compression and augmented flow are noted throughout the lower extremity. The visualized common femoral vein, superficial femoral vein, profunda femoral vein, popliteal vein and mid calf peroneal and posterior tibial venous segments show no evidence of deep venous thrombosis. There is no Pina's cyst. IMPRESSION: Normal triplex scan without evidence of deep venous thrombosis involving the right lower extremity.
[2016-05-23 15:51] VITALS: BP 112/60
[2016-05-24 00:39] VITALS: BP 108/72
--- NOTE | 2016-05-24 07:57 | PN- Att Addend ---
Attending Addendum Attending Brief Note Attending note. Patient feels a lot better had his wound dressing changes today pack was removed pain and swelling of the right foot is markedly decreased. Intake & Output 05/24 0000 05/23 1600 Intake Total 360 710 800 Output Total Balance 360 710 800 Intake, IV 250 350 Intake, Oral 360 460 450 Number 1 Bowel Movements Current Medications Sig/Fariba Start time Last Medication Dose Route Stop Time Status Admin Atorvastatin Calcium 40 MG DAILY 05/19 1000 AC 05/23 PO 1009 Cholecalciferol 1,000 IU DAILY 05/19 1000 AC 05/23 PO 1010 Escitalopram Oxalate 10 MG DAILY 05/19 1000 AC 05/23 PO 1010 Ezetimibe 10 MG DAILY 05/19 1000 AC 05/23 PO 1010 Fluocinonide 1 CATHY BID 05/18 2203 AC 05/22 EXT 0853 Heparin Sodium 5,000 UNIT Q8 05/19 0600 AC 05/24 (Porcine) SC 0559 Hydromorphone HCl 0.4 MG ONCE PRN 05/21 1000 AC 05/21 IV 1400 Ibuprofen 400 MG Q6P PRN 05/19 0830 AC 05/24 PO 0600 Levothyroxine Sodium 0.05 MG DAILY AC 05/19 0700 AC 05/24 PO 0559 Oxycodone HCl 5 MG Q6P PRN 05/20 1430 AC 05/23 PO 1312 Vancomycin HCl 1,500 MG Q12 05/19 1000 AC 05/23 Sodium Chloride 250 ML IV 2133 Laboratory Tests 05/24 0640 Hematology CBC w Diff Pending WBC Pending RBC Pending Hgb Pending Hct Pending MCV Pending MCH Pending RDW Pending Plt Count Pending MPV Pending PUBS MCHC Pending Vital Signs Date Time Temp Pulse Resp B/P Pulse O2 O2 Flow FiO2 Ox Delivery Rate 05/24 0039 97.6 73 20 108/72 95 05/23 1551 98.3 66 19 112/60 94 05/23 0832 97.5 61 20 110/63 94 Room Air Intake & Output 05/24 0000 05/23 1600 Intake Total 360 710 800 Output Total Balance 360 710 800 Intake, IV 250 350 Intake, Oral 360 460 450 Number 1 Bowel Movements Assessment sepsis abscess of the right foot secondary to MRSA On IV vancomycin patient scheduled to go to the OR tomorrow for change of dressing and wound lavage
[2016-05-24 08:30] VITALS: BP 120/77
[2016-05-24 08:32] LABS: ABSOLUTE BASOPHIL COUNT 0 /CUMM (0.0-0.2); ABSOLUTE EOSINOPHIL COUNT 0.1 /CUMM (0.0-0.7); ABSOLUTE GRANULOCYTE CT 6.4 /CUMM (1.4-6.5); ABSOLUTE LYMPH COUNT 1.8 /CUMM (1.2-3.4); ABSOLUTE MONOCYTE COUNT 0.9 /CUMM (0.10-0.60); BASOPHIL % 0.5 % (0.0-2.0); EOSINOPHIL % 1.2 % (0-5); GRANULOCYTE % 68.8 % (42.2-75.2); HEMATOCRIT 40.6 % (42-52); MEAN CORPUSCULAR HGB 30.1 PG (27.0-31.0); MEAN CORPUSCULAR HGB CONC 34.3 G/DL (33.0-37.0); MEAN CORPUSCULAR VOLUME 87.6 FL (80.0-94.0); PLATELET COUNT 265 /CUMM (130-400); RBC DISTRIBUTION WIDTH 12.6 % (11.5-14.5); RED BLOOD CELL CT 4.63 /CUMM (4.70-6.10); WHITE BLOOD CELL COUNT 9.3 /CUMM (4.8-10.8)
--- NOTE | 2016-05-24 12:01 | PN- Infect Dx ---
Subjective Subjective: Afebrile. He feels improved with decreased pain in the right foot. Objective Last 24 Hrs of Vital Signs/I&O Vital Signs Date Time Temp Pulse Resp B/P Pulse O2 O2 Flow FiO2 Ox Delivery Rate 05/24 829 97.5 71 20 120/77 95 Room Air 05/24 0039 97.6 73 20 108/72 95 05/23 1551 98.3 66 19 112/60 94 Intake & Output 05/24 1600 05/24 0800 05/24 0000 Intake Total 360 710 Output Total Balance 360 710 Intake, IV 250 Intake, Oral 360 460 Physical Exam Other Physical Findings: He appears comfortable in no acute distress Extremities right foot wound packed, with decreased erythema and tenderness Results Last 24 Hours of Lab Results: Laboratory Tests 05/24 639 Hematology CBC w Diff NO MAN DIFF REQ WBC (4.8 - 10.8 /CUMM) 9.3 RBC (4.70 - 6.10 /CUMM) 4.63 L Hgb (14.0 - 18.0 G/DL) 13.9 L Hct (42 - 52 %) 40.6 L MCV (80.0 - 94.0 FL) 87.6 MCH (27.0 - 31.0 PG) 30.1 RDW (11.5 - 14.5 %) 12.6 Plt Count (130 - 400 /CUMM) 265 MPV (7.4 - 10.4 FL) 7.0 L Gran % (42.2 - 75.2 %) 68.8 Lymphocytes % (20.5 - 51.1 %) 19.3 L Monocytes % (1.7 - 9.3 %) 10.2 H Eosinophils % (0 - 5 %) 1.2 Basophils % (0.0 - 2.0 %) 0.5 Absolute Granulocytes (1.4 - 6.5 /CUMM) 6.4 Absolute Lymphocytes (1.2 - 3.4 /CUMM) 1.8 Absolute Monocytes (0.10 - 0.60 /CUMM) 0.9 H Absolute Eosinophils (0.0 - 0.7 /CUMM) 0.1 Absolute Basophils (0.0 - 0.2 /CUMM) 0 PUBS MCHC (33.0 - 37.0 G/DL) 34.3 Last 24 Hours of [place] Results: No recent cultures Recent Imaging Studies: Doppler of the right lower extremity May 23 negative Assessment/Plan Impression: Stable status post I&D of a right foot abscess 3 days ago with temperatures and white blood cell count normal on Vancomycin for MRSA isolated from the aspiration at the bedside. He is scheduled for a return to the OR in the a.m. for further evaluation of the wound and possible closure. Vancomycin trough level noted and can continue him on the current dose. Suggestion: 1. Await return to the OR in the a.m. 2. Continue Vancomycin until discharge, at which point he can be changed to Bactrim DS 1 po every 12 hours to complete a one week course of antibiotics post op
[2016-05-24 15:47] VITALS: BP 118/80
[2016-05-25 00:02] VITALS: BP 112/64
[2016-05-25 07:54] LABS: ABSOLUTE BASOPHIL COUNT 0 /CUMM (0.0-0.2); ABSOLUTE EOSINOPHIL COUNT 0.2 /CUMM (0.0-0.7); ABSOLUTE GRANULOCYTE CT 6.3 /CUMM (1.4-6.5); ABSOLUTE LYMPH COUNT 1.9 /CUMM (1.2-3.4); BASOPHIL % 0.5 % (0.0-2.0); EOSINOPHIL % 1.7 % (0-5); GRANULOCYTE % 67.4 % (42.2-75.2); HEMATOCRIT 41.5 % (42-52); MEAN CORPUSCULAR VOLUME 88.4 FL (80.0-94.0); MEAN PLATELET VOLUME 6.9 FL (7.4-10.4); PLATELET COUNT 261 /CUMM (130-400); RBC DISTRIBUTION WIDTH 12.7 % (11.5-14.5); WHITE BLOOD CELL COUNT 9.4 /CUMM (4.8-10.8)
--- NOTE | 2016-05-25 08:05 | PN- Housestaff ---
Subjective Follow-up For: MRSA abscess Complaints: mild to moderate pain Subjective: Patient was visited and examined today. Complaining of mild to moderate pain on his lower extremity nothing by mouth today's going for the second and last round of incision and drainage open (wound closure) with Dr. Castelan patient is in good spirits follow-up probable discharge later evening today with by mouth doxycycline for 7-10 days. Review of Systems Constitutional: Denies: chills, diaphoresis, fever, malaise, weakness, unexplained weight loss. EENTM: Denies: blurred vision, double vision, visual changes, eye pain, eye drainage, eye tearing, icterus, ear discharge, ear pain, ear redness, hearing changes, nasal congestion, epistaxis, nasal pain, throat pain, throat swelling, mouth pain, tooth pain. Cardiovascular: Denies: chest pain, edema, orthopena, palpitations, peripheral edema, syncope. Respiratory: Reports: cough, short of breath, sputum production. Denies: hemoptysis, orthopnea, stridor, wheezing. Gastrointestinal: Reports: bloating, diarrhea. Genitourinary: Denies: discharge, dysuria, frequency, hematuria, hesitation, nocturia, pain, urgency. Musculoskeletal: Denies: back pain, gout, joint pain, joint swelling, muscle pain, muscle stiffness, neck pain. Skin: Denies: cysts, change in skin color, change in hair/nails, dryness, erythema, jaundice, lesions, lymphangitis, lumps, moles, rash. Neurological/Psychological: Reports: see HPI, anxiety. Objective Last 24 Hrs of Vital Signs/I&O Vital Signs Date Time Temp Pulse Resp B/P Pulse O2 O2 Flow FiO2 Ox Delivery Rate 05/25 0837 97.6 80 18 116/70 96 Room Air 05/25 0002 97.9 89 18 112/64 93 Room Air 05/24 1547 97.5 74 18 118/80 95 Intake & Output 05/25 1600 05/25 0800 05/25 0000 Intake Total 0 750 Output Total Balance 0 750 Intake, IV 250 Intake, Oral 0 500 Physical Exam General Appearance: Alert, Oriented X3, Cooperative, No Acute Distress Skin: No Rashes, No Breakdown, No Significant Lesion HEENT: Atraumatic, PERRLA, EOMI, Mucous Membr. moist/pink Neck: Supple, No JVD, No thryomegaly, +2 Carotid Pulse wo Bruit, No LAD Lymphatic: Axillary nl, Cervical nl Cardiovascular: Normal S1, Normal S2, No Murmurs Lungs: Clear to Auscultation, Normal Air Movement Abdomen: Normal Bowel Sounds, Soft, No Tenderness, No Hepatospenomegaly, No Masses Neurological: Normal Speech Extremities: No Clubbing, No Cyanosis, No Edema, Normal Pulses, No Tenderness/ Swelling Vascular: Normal Pulses Current Medications: Current Medications Sig/Fariba Start time Last Medication Dose Route Stop Time Status Admin Atorvastatin Calcium 40 MG DAILY 05/19 1000 AC 05/24 PO 1043 Cholecalciferol 1,000 IU DAILY 05/19 1000 AC 05/24 PO 1043 Escitalopram Oxalate 10 MG DAILY 05/19 1000 AC 05/24 PO 1043 Ezetimibe 10 MG DAILY 05/19 1000 AC 05/24 PO 1043 Fluocinonide 1 CATHY DAILY 05/25 1000 AC EXT Fluocinonide 1 CATHY BID 05/24 1059 AC 05/24 EXT 1059 Heparin Sodium 5,000 UNIT Q8 05/19 0600 AC 05/25 (Porcine) SC 0606 Hydromorphone HCl 0.4 MG ONCE PRN 05/21 1000 AC 05/21 IV 1400 Ibuprofen 400 MG Q6P PRN 05/19 0830 AC 05/25 PO 0612 Levothyroxine Sodium 0.05 MG DAILY AC 05/19 0700 AC 05/25 PO 0606 Oxycodone HCl 5 MG Q6P PRN 05/20 1430 AC 05/23 PO 1312 Vancomycin HCl 1,500 MG Q12 05/19 1000 AC 05/25 Sodium Chloride 250 ML IV 0929 Last 24 Hrs of Lab/Sidney Results Last 24 Hrs of Labs/Mics: Laboratory Tests 05/25/16 0632: CBC w Diff NO MAN DIFF REQ, RBC 4.70, MCV 88.4, MCH 30.0, RDW 12.7, MPV 6.9 L, Gran % 67.4, Lymphocytes % 20.0 L, Monocytes % 10.4 H, Eosinophils % 1.7, Basophils % 0.5, Absolute Granulocytes 6.3, Absolute Lymphocytes 1.9, Absolute Monocytes 1.0 H, Absolute Eosinophils 0.2, Absolute Basophils 0, PUBS MCHC 34.0 Assessment/Plan Assessment: 56-year-old gentleman with past medical history of psoriasis, Hx of MRSA cellulitis, was admitted for right foot cellulitis that failed outpatient antibiotic treatment. Assessment - MRSA cellulitis abscess with positive blood culture that is post incision and drainage -Psoriasis -Hypothyroidism plan -continue IV vancomycin BID,WBC is trending down -check Vanc-Trough IS 11; ACCEPBIBLE AND WE WILL CONTINUE THE SAME DOSE. -REVISION incision and drainage by Dr. Castelan today -Continue SSRI, levothyroxine, Zetia -Continue steroid cream for psoriasis -DVT prophylaxis Alps and heparin sub Q, heart healthy diet, full code -follow results of the right leg doppler for DVT Problem List: 1. Abscess and cellulitis Pain Ratin Pain Location: Lower extremity Pain Goal: Pain 4 or less Pain Plan: IV Dilaudid for severe pain Ibuprofen for mild/moderate pain Tomorrow's Labs & Rationales: BEP Daily vancomycin; check renal function DVT/Prophylaxis: pharmacological Consulting Request: Consulting Specialty: Infectious Disease
[2016-05-25 08:37] VITALS: BP 116/70
--- NOTE | 2016-05-25 13:45 | NUR ---
NURSING NOTE: PT LEFT FLOOR VIA STRETCHER WITH DISTRIBNUTION FOR OR WITH DR SALMON, PT AWAKE, A/OX3, ROOM AIR, IV PATENT, DSG TO R FOOT INTACT. NPO, OR SCRUB DONE, CHECKLIST COMPLETE,STAMPER AND CHART SENT, MRSA +; OR AWARE. CONT TO MONITOR. AWAIT RETURN TO FLOOR
--- NOTE | 2016-05-25 15:18 | Patient Discharge Instructions ---
Discharge Instructions General Discharge Information You were seen/treated for: MRSA abscess and cellulitis You had these procedures: Incision and drainage Watch for these problems: fever increasing pain altered mental status Call Surgeon to remove: Stitches Special Instructions: 1) please follow up with your primary care 2) please follow up with Dr. Castelan Diet Continue normal diet: No Recommended Diet: Heart Healthy Activity Full Activity/No Limits: Yes Activity Self Limited: Yes Acute Coronary Syndrome Inclusion Criteria At DC or during hospital stay patient has or had the following: ACS DIAGNOSIS No Discharge Core Measures Meds if any: Prescribed or Continued at Discharge HUMBERTO/ARB if EF <40% No Aspirin No Meds if any: NOT Prescribed or Continued at Discharge Congestive Heart Failure Inclusion Criteria At DC or during hospital stay patient has or had the following: CHF DIAGNOSIS No Discharge Core Measures Meds if any: Prescribed or Continued at Discharge Meds if any: NOT Prescribed or Continued at Discharge Cerebrovascular accident Inclusion Criteria At DC or during hospital stay patient has or had the following: CVA/TIA Diagnosis No Discharge Core Measures Meds if any: Prescribed or Continued at Discharge Meds if any: NOT Prescribed or Continued at Discharge Venous thromboembolism Inclusion Criteria VTE Diagnosis No VTE Type NONE VTE Confirmed by (Test) NONE Discharge Core Measures - Per Current guidelines, there needs to be overlap - treatment for the first 5 days of Warfarin therapy. - If discharged on Warfarin prior to 5 days of - overlap therapy, the patient will need to be - assessed for post discharge needs including - *Post discharge parental anticoagulation - *Warfarin and/or parental anticoagulation education - *Follow up date to check INR post discharge At least 5 days overlap therapy as Inpatient No Meds if any: Prescribed or Continued at Discharge Note: Overlap Therapy is Warfarin and Anticoagulant Meds if any: NOT Prescribed or Continued at Discharge
--- NOTE | 2016-05-25 15:55 | NUR ---
NURSING NOTE; PT BACK TO FLOOR FROM PACU AT 1535 VIA STRETCHER. PT VSS, SETTLED BACK IN TO BED. PT HAS NO COMPLAINTS AT THIS TIME. WILL CONTINUE TO MONITOR.
[2016-05-25 15:56] VITALS: BP 114/70
--- NOTE | 2016-05-25 17:38 | Operative Report ---
Operative/Inv Procedure Report Surgery Date: 05/25/16 Name of Procedure: 1 open incision and drainage deep to the D fashion with exposure of the extensor tendon and tendon sheath multiple sites right foot 2 delayed primary closure of open surgical wound with local random advancement flap 3 intraoperative administration of ankle block anesthesia 4 excisional debridement Pre-Operative Diagnosis: 1 open infected wound right foot Post-Operative Diagnosis: The same Estimated Blood Loss: less than 50ml Surgeon/Election Supervisor: JESSICA SALMON DPM Anesthesia: moderate sedation, block Operative/Procedure Note Note: After obtaining informed consent the patient was brought to the operating room and placed on the operating table in the supine position. The patient isn't securely fastened to the operating table utilizing safety. After measures of IV sedation, 10 mL of 0.5% Marcaine plain was infiltrated about the patient's right ankle. Right foot and ankle within scrubbed prepped and draped in usual aseptic manner. Attention was directed to the right foot were a large full-thickness necrotic was identified. A 15 blade was utilized to sharply revise the skin margins. The dissection was then carried down deep to the deep fascia with exposure of the extensor tendon and tendon sheath multiple sites, both proximally and distally. All necrotic nonviable infected tissue sharply evacuated from the wound bed. Nipple was then irrigated with 3 L normal sterile saline fissure 50,000 units of bacitracin. Following this the foot was redraped and the surgeon's top gloves were changed clean gloves. Any bleeding vessels identified were cauterized or ligated as encountered. A dorsal lateral dorsal medial flap was then developed with undermining mobilization and advancement adjacent tissues towards central aspect of the wound. The deep side of the flap was held together with 3-0 Vicryl and the subtenons tissues reapproximated 4-0 Vicryl. The skin is then reapproximated with 3-0 nylon. The incision was dressed with Xeroform 4 x 4's Kerlix and Mak wrap. The patient was noted tolerate both procedure and anesthesia well and the patient was transported from the operating room to recovery with vital signs stable and vascular status intact to both the dorsal medial dorsal lateral flaps.
--- NOTE | 2016-05-26 00:21 | NUR ---
NURSING NOTE; LATE ENTRY; PT BACK TO FLOOR FROM PACU VIA STRETCHER AT 1555. PT SETTLED BACK IN TO BED. PT VSS, NO COMPLAINTS OF PAIN AT THIS TIME. PT DSG TO R FOOT CDI. WILL CONTINUE TO MONITOR.
[2016-05-26 00:39] VITALS: BP 102/78
--- NOTE | 2016-05-26 07:14 | PN- Att Addend ---
Attending Addendum Attending Brief Note Attending note. Patient feels well had the debridement done in the OR yesterday morning. Also received 1 dose of IV vancomycin following the procedure. He feels well he is ambulating Intake & Output 05/26 0800 05/26 0000 05/25 1600 Intake Total 400 725 250 Output Total 500 800 Balance 400 225 -550 Intake, IV 125 250 Intake, Oral 400 600 0 Number 0 Bowel Movements Output, Urine 500 800 Current Medications Sig/Fariba Start time Last Medication Dose Route Stop Time Status Admin Acetaminophen 650 MG ONCE ONE 05/25 1630 DC 05/25 PO 05/25 1631 1720 Atorvastatin Calcium 40 MG DAILY 05/19 1000 AC 05/24 PO 1043 Cholecalciferol 1,000 IU DAILY 05/19 1000 AC 05/24 PO 1043 Escitalopram Oxalate 10 MG DAILY 05/19 1000 AC 05/24 PO 1043 Ezetimibe 10 MG DAILY 05/19 1000 AC 05/24 PO 1043 Fentanyl Citrate 200 MCG .STK-MED ONE 05/25 1319 DC IM 05/25 1320 Fluocinonide 1 CATHY DAILY 05/25 1000 DC EXT Fluocinonide 1 CATHY BID 05/24 1059 AC 05/24 EXT 1059 Heparin Sodium 5,000 UNIT Q8 05/19 0600 AC 05/26 (Porcine) SC 0555 Hydromorphone HCl 0.4 MG ONCE PRN 05/21 1000 AC 05/21 IV 1400 Ibuprofen 400 MG .STK-MED ONE 05/25 1229 DC PO 05/25 1230 Ibuprofen 400 MG Q6P PRN 05/19 0830 AC 05/26 PO 0555 Levothyroxine Sodium 0.05 MG DAILY AC 05/19 0700 AC 05/26 PO 0555 Midazolam HCl 2 MG .STK-MED ONE 05/25 1319 DC IM 05/25 1320 Ondansetron HCl 8 MG .STK-MED ONE 05/25 1319 DC IM 05/25 1320 Oxycodone HCl 5 MG Q6P PRN 05/20 1430 AC 05/23 PO 1312 Patient Medication 1 ED .STK-MED ONE 05/25 1352 DC Teaching ED 05/25 1353 Vancomycin HCl 1,500 MG Q12 05/19 1000 AC 05/25 Sodium Chloride 250 ML IV 2235 Laboratory Tests 05/25 1125 Chemistry Sodium (137 - 145 mmol/L) 139 Potassium (3.5 - 5.1 mmol/L) 4.8 Chloride (98 - 107 mmol/L) 100 Carbon Dioxide (22 - 30 mmol/L) 27 Anion Gap (5 - 16) 12 BUN (9 - 20 mg/dL) 9 Creatinine (0.7 - 1.2 mg/dL) 0.8 Estimated GFR (>60 ml/min) > 60 BUN/Creatinine Ratio (7 - 25 %) 11.3 Vital Signs Date Time Temp Pulse Resp B/P Pulse O2 O2 Flow FiO2 Ox Delivery Rate 05/26 0039 97.5 69 20 102/78 97 Room Air 05/25 1556 97.2 63 18 114/70 93 Room Air 05/25 0837 97.6 80 18 116/70 96 Room Air Intake & Output 05/26 0800 05/26 0000 05/25 1600 Intake Total 400 725 250 Output Total 500 800 Balance 400 225 -550 Intake, IV 125 250 Intake, Oral 400 600 0 Number 0 Bowel Movements Output, Urine 500 800 On examination Plan is to discharge patient home on Bactrim following recommendations of ID also follow-up with the to podiatry for further management. We will follow up in my office in 1 week
--- NOTE | 2016-05-26 07:34 | PN- Housestaff ---
Subjective Follow-up For: MRSA cellulitis Complaints: no complaints Subjective: Patient was visited and examined today. He had his second round of surgery ( wound closure ) with Dr. Flip anne. Stable. Would be discharged home today on oral Abx based on my conversation with dr Ray. Review of Systems Constitutional: Denies: chills, diaphoresis, fever, malaise, weakness, unexplained weight loss. Cardiovascular: Denies: chest pain, edema, orthopena, palpitations, peripheral edema, syncope. Musculoskeletal: Denies: back pain, gout, joint pain, joint swelling, muscle pain, muscle stiffness, neck pain. Neurological/Psychological: Denies: anxiety, ataxia, cognitive dysfunction, confusion, depressed, dementia, emotional problems, headache, numbness, paresthesia, pre-existing deficit, petit mal seizures, tingling, tremors, tonic-clonic seizures, unable to move lower ext , unable to move upper ext, weakness, other. Objective Last 24 Hrs of Vital Signs/I&O Vital Signs Date Time Temp Pulse Resp B/P Pulse O2 O2 Flow FiO2 Ox Delivery Rate 05/26 0039 97.5 69 20 102/78 97 Room Air 05/25 1556 97.2 63 18 114/70 93 Room Air 05/25 0837 97.6 80 18 116/70 96 Room Air Intake & Output 05/26 1600 05/26 0800 05/26 0000 Intake Total 400 725 Output Total 500 Balance 400 225 Intake, IV 125 Intake, Oral 400 600 Output, Urine 500 Physical Exam General Appearance: Alert, Oriented X3, Cooperative, No Acute Distress Skin: wound on the lower extremity clean; no drainage; no enduration HEENT: Atraumatic, PERRLA, EOMI, Mucous Membr. moist/pink Neck: Supple, No JVD, No thryomegaly, +2 Carotid Pulse wo Bruit, No LAD Cardiovascular: Normal S1, Normal S2, No Murmurs Lungs: Clear to Auscultation, Normal Air Movement Extremities: No Clubbing, No Cyanosis, No Edema, Normal Pulses, No Tenderness/ Swelling Current Medications: Current Medications Sig/Fariba Start time Last Medication Dose Route Stop Time Status Admin Acetaminophen 650 MG ONCE ONE 05/25 1630 DC 05/25 PO 05/25 1631 1720 Atorvastatin Calcium 40 MG DAILY 05/19 1000 AC 05/24 PO 1043 Cholecalciferol 1,000 IU DAILY 05/19 1000 AC 05/24 PO 1043 Escitalopram Oxalate 10 MG DAILY 05/19 1000 AC 05/24 PO 1043 Ezetimibe 10 MG DAILY 05/19 1000 AC 05/24 PO 1043 Fentanyl Citrate 200 MCG .STK-MED ONE 05/25 1319 DC IM 05/25 1320 Fluocinonide 1 CATHY DAILY 05/25 1000 DC EXT Fluocinonide 1 CATHY BID 05/24 1059 AC 05/24 EXT 1059 Heparin Sodium 5,000 UNIT Q8 05/19 0600 AC 05/26 (Porcine) SC 0555 Hydromorphone HCl 0.4 MG ONCE PRN 05/21 1000 AC 05/21 IV 1400 Ibuprofen 400 MG .STK-MED ONE 05/25 1229 DC PO 05/25 1230 Ibuprofen 400 MG Q6P PRN 05/19 0830 AC 05/26 PO 0555 Levothyroxine Sodium 0.05 MG DAILY AC 05/19 0700 AC 05/26 PO 0555 Midazolam HCl 2 MG .STK-MED ONE 05/25 1319 DC IM 05/25 1320 Ondansetron HCl 8 MG .STK-MED ONE 05/25 1319 DC IM 05/25 1320 Oxycodone HCl 5 MG Q6P PRN 05/20 1430 AC 05/23 PO 1312 Patient Medication 1 ED .STK-MED ONE 05/25 1352 DC Teaching ED 05/25 1353 Vancomycin HCl 1,500 MG Q12 05/19 1000 AC 05/25 Sodium Chloride 250 ML IV 2235 Last 24 Hrs of Lab/Sidney Results Last 24 Hrs of Labs/Mics: Laboratory Tests 05/25/16 1125: Anion Gap 12, Estimated GFR > 60, BUN/Creatinine Ratio 11.3 Assessment/Plan Assessment: 56-year-old gentleman with past medical history of psoriasis, Hx of MRSA cellulitis, was admitted for right foot cellulitis that failed outpatient antibiotic treatment. plan -last dose of IV vancomycin today -D/C home on Doxycyclin 100 mg po BID for total of 10 days -follow up with Dr. Melgar as an out patient Problem List: 1. Abscess and cellulitis Pain Ratin Pain Location: lower extremity Pain Goal: Pain 4 or less Pain Plan: tylenol Tomorrow's Labs & Rationales: none Consulting Request: Consulting Specialty: Infectious Disease Discharge Plan Discharge Disposition: home Stable for Discharge? Yes Anticipated Discharge (Day): today
[2016-05-26] MEDS ORDERED: DOXYCYCLINE HY100 M2 PO (07:40)
[2016-05-26 08:58] VITALS: BP 106/80
--- NOTE | 2016-06-23 16:39 | Discharge Summary ---
Visit Information Visit Dates Admission Date: 05/18/16 Discharge Date: 05/26/16 Hospital Course Course Attending Physician: BERNIE CHEEK MD Primary Care Physician: BERNIE CHEEK MD Consulting Request: Consulting Specialty: Podiatry Hospital Course: 56-year-old gentleman with history of psoriasis admitted to the hospital having pain and discomfort on the dorsum of his right foot. Initially it was a blister O on he was treated with amoxicillin as well as Bactrim and applied local Mupirocin ointment to the foot with very little improvement. Next day the pain became progressively worse he was unable to walk and he was sent to the hospital for evaluation. In the ER was afebrile with a white count of 15,000 right foot was showed moderate soft tissue swelling and was no evidence of posture myelitis. Patient was admitted to the medical service obtain an infectious disease consult also a podiatry consult. He was put on IV vancomycin During stay in the hospital the patient progressively got worse he was taken to the operating room and he was debrided. The open incision and drainage due to the fascia exposure of the extensor tendons and the tendon sheath at multiple sites on the dorsum of the right foot. It was lavaged and then the wound was kept open for delayed closure. After right was debrided and lavaged patient felt much better. The redness and swelling markedly decreased was able to bear weight on the foot. He continued to receive IV vancomycin. Condition at time of discharge she is afebrile vital signs are stable S1-S2 is normal lungs are clear abdomen is soft nontender balls of present Dorsum of the foot shows marked reduction in swelling and redness patient was able to ambulate. 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 Medications at Discharge Discharge Medications: Stop taking the following medications: Amoxicillin (Amoxicillin) 875 MG TABLET ORAL TWICE DAILY Qty = 20 Sulfamethoxazole/Trimethoprim (Bactrim Ds Tablet) 800 MG-160 MG TABLET ORAL TWICE DAILY Qty = 20 Continue taking these medications: Levothyroxine Sodium (Synthroid) 50 MCG TABLET 1 Tablet ORAL DAILY Qty = 90 Comments: Last Taken: 05/26/16 Time: 0600AM Atorvastatin Calcium (Atorvastatin Calcium) 40 MG TABLET 1 Tablet ORAL DAILY Qty = 90 Comments: Last Taken:05/26/16 Time: 0830AM Escitalopram Oxalate (Escitalopram Oxalate) 10 MG TABLET 1 Tablet ORAL DAILY Qty = 90 Comments: Last Taken: 05/26/16 Time: 0830AM Ezetimibe (Zetia) 10 MG TABLET 1 Tablet ORAL DAILY Qty = 90 Comments: Last Taken: 05/26/16 Time: 0830AM Sildenafil Citrate (Viagra) 50 MG TABLET 1 Tablet ORAL As Directed as needed for ED Qty = 18 Instructions: 1 hour before sexual activity Comments: NOT GIVEN Cyanocobalamin (Vitamin B-12) (Cyanocobalamin Injection) 1,000 MCG/ML VIAL 1 Milliliters INTRAMUSC EVERY 2 WEEKS Qty = 2 Comments: NOT GIVEN IN HOSPITAL Celecoxib (Celecoxib) 200 MG CAPSULE 1 Capsule ORAL DAILY Qty = 30 Comments: NOT GIVEN IN HOSPITAL Cholecalciferol (Vitamin D3) (Vitamin D) 2,000 UNIT TABLET 1 Tablet ORAL DAILY Comments: Last Taken: 05/26/16 Time: 0830AM Methylprednisolone (Methylprednisolone) 4 MG TAB.DS.PK Tablet ORAL As Directed Qty = 21 Comments: NOT GIVEN Mupirocin (Mupirocin) 2 % OINT...G. 1 Application On the skin THREE TIMES DAILY Qty = 22 Instructions: apply to affected area(s) Comments: NOT GIVEN Diflorasone Diacetate (Diflorasone Diacetate) 0.05 % OINT...G. 1 Application On the skin As Directed as needed for PSORIASIS Qty = 60 Comments: NOT GIVEN IN [facility] Diflorasone Diacetate (Diflorasone Diacetate) 0.05 % CREAM..G. 1 Application On the skin As Directed as needed for PSORIASIS Qty = 60 Comments: NOT GIVEN IN HOSPITAL Folic Acid (Folic Acid) (Unknown Strength) CAPSULE 1 Tablet ORAL DAILY Comments: NOT GIVEN IN HOSPITAL Start taking the following new medications: Doxycycline Hyclate (Doxycycline Hyclate) 100 MG CAPSULE 1 Capsule ORAL TWICE DAILY Qty = 120 No Refills Comments: NOT GIVEN IN HOSPITAL Copies To: BERNIE CHEEK MD Attending Review Statement Documenting Attending: BERNIE CHEEK MD
== END 2016-05-26 12:04 | DRG 571 ==
LOC: ERH 14:39 → ERHI 17:55 → 2NB 17:55
PROVIDERS: Internal Medicine; Physician Assistant; Student in an Organized Health Care Education/Training Program; ADMIT Internal Medicine
PROC: 0J9Q0ZZ Drainage of Right Foot Subcutaneous Tissue and Fascia, Open Approach (ICD-10-PCS; principal; 2016-05-21)
PROC: 0JXQ0ZZ Transfer Right Foot Subcutaneous Tissue and Fascia, Open Approach (ICD-10-PCS; 2016-05-25)
PROC: 0JBQ0ZZ Excision of Right Foot Subcutaneous Tissue and Fascia, Open Approach (ICD-10-PCS; 2016-05-25)
DX: L02.611 Cutaneous abscess of right foot (principal); L03.115 Cellulitis of right lower limb; L40.9 Psoriasis, unspecified; B95.62 Methicillin resistant Staphylococcus aureus infection as the cause of diseases classified elsewhere; E78.5 Hyperlipidemia, unspecified; E03.9 Hypothyroidism, unspecified; Z87.891 Personal history of nicotine dependence
CPT/HCPCS: 2NBP; 87075; 87184; 36415; 73630-RT; 76881; 82436; 87040; 87070; 87147; 96374; 96375; J0690; J1644; J1885; J2001; J2270; J2405; J3370; J7040

== ENCOUNTER 2017-07-06 17:36 | Emergency (ER) | payer OTHER ==
[~2017-07-06 17:36] MED LIST changes: +ATORVASTATIN CA40 M1 PO; +CELECOXIB200 M1 PO; +CYANOCOBAL1000 MCG/2 IM; +DIFLORASONE DIA TOP; +DOXYCYCLINE HY100 M2 PO; +ESCITALOPRAM OX10 MG PO; +FOLIC ACID0.8 M1 PO; +METHYLPREDNISOLO4 M2 PO; +MUPIROCIN22 GM TOP; +SYNTHROID50 MCG PO; +VIAGRA50 MG PO; +VITAMIN D2000 UNI1 PO; +ZETIA10 M1 PO
== END 2017-07-06 17:58 | disposition admitted as inpatient to this hospital (09) ==
LOC: ERH 17:36
DX: T14.90XA Injury, unspecified, initial encounter (principal); V89.2XXA Person injured in unspecified motor-vehicle accident, traffic, initial encounter